=== PATIENT | male | born 1945 | race Caucasian/White ===

== ENCOUNTER 2020-05-12 17:02 | Emergency (ER) | payer MEDICARE, OTHER, SELFPAY ==
[2020-05-12 17:14] VITALS: BP 121/64; PULSE 94; RESP 20; TEMP 36.6; O2SAT 98
--- NOTE | 2020-05-12 17:36 | ED.SKABFB ---
HPI - Skin/Abscess/Foreign Bdy General Chief complaint: Wound/Laceration Stated complaint: wound Time Seen by Provider: 05/12/20 17:03 Source: patient Mode of arrival: ambulatory Limitations: no limitations History of Present Illness HPI narrative: 74-year-old male presents to [facility] care with complaints of skin tear to his left upper arm after his arm was hit with a softball while watching his granddaughter softball game prior to arrival. Patient is unsure of his last tetanus shot. Patient does not take blood thinners daily. Patient denies headache, dizziness, blurred vision, nausea or vomiting. MD complaint: other (skin tear) Tetanus up to date: no [place] [facility] [place]acerbating factors: none Context: none Treatments prior to arrival: bandages Related Data Home Medications Medication Instructions Recorded Confirmed metformin 500 mg PO DAILY 05/12/20 05/12/20 nitroglycerin 0.4 mg SUBLINGUAL Q5M PRN 05/12/20 05/12/20 simvastatin 10 mg PO DAILY 05/12/20 05/12/20 Allergies Allergy/AdvReac Type Severity Reaction Status Date / Time No Known Allergies Allergy Unknown Verified 05/12/20 17:18 Review of Systems Constitutional: Constitutional: Denies chills, Denies fatigue, Denies fever(s) and Denies weakness ENT: Denies vertigo and Denies dizziness Cardiovascular: Cardiovascular: Denies chest pain, Denies rapid heart rate, Denies radiating jaw, neck or arm pain and Denies slow heart rate Respiratory: Respiratory: Denies chest congestion, Denies cough, Denies dyspnea and Denies wheezing Gastrointestinal: Gastrointestinal: Denies abdominal pain, Denies diarrhea, Denies nausea and Denies vomiting Integumentary/Breasts: Comments: skin tear to left upper arm Neurologic: Denies vertigo, Denies headache(s), Denies focal weakness, Denies numbness and Denies weakness PMFSH Past Medical History Medical History (Updated 05/12/20 @ 17:44 by Ivory Aburto APRN) Diabetes mellitus HTN (hypertension) Myocardial infarct Surgical History Surgical History (Updated 05/12/20 @ 17:39 by Ivory Aburto APRN) H/O heart artery stent History of removal of cyst Social History Social History (Updated 05/12/20 @ 17:40 by Ivory Aburto APRN) Smoking packs per day: 0.5 Smoking cigarettes per day: 10.0 Smoking status: Current every day smoker Exam Const: General: healthy appearing, no acute distress and alert Orientation/consciousness: patient oriented x3 Neck: Neck: normal visual inspection Resp: Effort & Inspection: normal respiratory effort, not labored and not tachypneic Auscultation: clear to auscultation bilaterally Cardio: Rate: regular rate, not bradycardic and not tachycardic Rhythm: regular rhythm Heart sounds: no murmurs Skin: General skin exam: normal color Rashes: no rashes Other: 8 cm skin tear noted to left upper arm. There is no active bleeding, purulent drainage, streaking erythema or signs of infection noted. Neuro: General: patient oriented x3 and moves all extremities Extrem: General: normal to inspection (Skin tear noted to left upper arm; full range of motion noted. ), no clubbing, cyanosis or edema and no pedal edema Other: Full range of motion noted to left arm. No pain upon palpation left upper arm. There is faint amount of bruising noted around skin tear. Course Vital Signs Vital signs: Vital Signs Temperature 36.6 C 05/12/20 17:14 Pulse Rate 94 05/12/20 17:14 Respiratory Rate 20 05/12/20 17:14 Blood Pressure 121/64 05/12/20 17:14 Pulse Oximetry 98 05/12/20 17:14 Temperature 36.6 C 05/12/20 17:14 Pulse Rate 94 05/12/20 17:14 Respiratory Rate 20 05/12/20 17:14 Blood Pressure 121/64 05/12/20 17:14 Pulse Oximetry 98 05/12/20 17:14 Procedures Other Procedure Procedure 1: Other Procedure: Skin tear was cleansed using normal saline. Wound edges were well approximated using 6 Steri-Strips. Patient tolerated well. There is no act
[2020-05-12] MEDS: TETANUS/DIPHTHERIA TOXOIDS ADSORB 0.5 ML VIAL (*BKC) IM (18:00)
== END 2020-05-12 18:18 | disposition home or self-care (01) ==
PROVIDERS: Emergency Provider Nurse Practitioner Family; PCP Physician Assistant
DX: S41.112A Laceration without foreign body of left upper arm, initial encounter (principal); W21.03XA Struck by baseball, initial encounter; Z23 Encounter for immunization; F17.210 Nicotine dependence, cigarettes, uncomplicated; E11.9 Type 2 diabetes mellitus without complications; I10 Essential (primary) hypertension; I25.2 Old myocardial infarction; Z95.5 Presence of coronary angioplasty implant and graft; Z79.84 Long term (current) use of oral hypoglycemic drugs
CPT/HCPCS: 90471; 90714; 99212; G0463

== ENCOUNTER 2021-05-12 18:17 | Emergency (ER) | payer MEDICARE, OTHER, SELFPAY ==
[2021-05-12] VITALS (9 sets, daily range): BP systolic 113–139; BP diastolic 60–79; PULSE 80–99; RESP 15–22; TEMP 36.6; O2SAT 96–100
--- NOTE | ~2021-05-12 | XR_ITS ---
XR abdomen/kub 1V 05/12/2021 20:39 INDICATION: Abdominal pain. History of kidney stones. TECHNIQUE: KUB COMPARISON: None FINDINGS: Bowel gas pattern is normal. There is no evidence of free air, mass, organomegaly, ascites or obstruction. No abnormal calculi are seen. The bones appear intact. There are vascular calcific ations in the pelvis. Mild lumbar spondylosis. IMPRESSION: 1: No acute abdominal abnormality identified. Reviewed, dictated and finalized at location A.
--- NOTE | ~2021-05-12 | CT_ITS ---
EXAMINATION: CT abdomen pelvis wo con DATE: 05/12/2021 18:51 INDICATION: Bilateral flank pain. Kidney stones. TECHNIQUE: Computed tomography (CT) of the abdomen and pelvis was performed without intravenous contr ast. The dose-length product was 261.02 mGy-cm. Automated exposure control and iterative reconstructi on technique were employed. COMPARISON: CT dated 09/03/2019 FINDINGS: Heart size normal. No significant pleural or pericardial effusion. There are interstitial c hanges in the lower lobes which appear chronic. Elevated right diaphragm. Gallstones. There is a 5 mm right UVJ stone with moderate hydroureteronephrosis. There are nonobstructing left renal stones. The re is right perinephric edema. Nonobstructive bowel gas pattern. No free air or free fluid. The liver, spleen, pancreas, adrenal gla nds are unremarkable. Mild lumbar spondylosis. IMPRESSION: 1. Right UVJ stone measuring 5 mm with moderate hydronephrosis. 2: Nonobstructing left nephrolithiasis. 3: Cholelithiasis. Reviewed, dictated and finalized at location A.
[2021-05-12 18:48] LABS: Basophils Absolute Auto 0.1 K/mm3 (0.0-0.1); Basophils Percent Auto 0.4 % (0.2-1.2); Eosinophils Absolute Auto 0.2 K/mm3 (0-0.3); Eosinophils Percent Auto 1.1 % (0-4.4); Hematocrit 48.8 % (42.0-52.0); Hemoglobin 15.8 g/dL (14.0-18.0); Immature Granulocyte Absolute 0.05 K/mm3 (0.00-0.031); Immature Granulocyte Percent A 0.4 % (0-0.5); Lymphocytes Absolute Auto 1.85 K/mm3 (0.9-3.2); Lymphocytes Percent Auto 13.3 % (18.3-44.2); Mean Corpuscular HGB Conc 32.4 g/dl (32-36); Mean Corpuscular Volume 92.6 fl (80-100); Monocytes Absolute Auto 0.8 K/mm3 (0.1-0.6); Monocytes Percent Auto 5.7 % (2.6-8.5); Neutrophils Percent Auto 79.1 % (45.5-73.1); Platelet Count Result 225 k/mm3 (150-375); Red Blood Count 5.27 M/mm3 (4.6-6.20); Red Cell Distribution Width 13.7 % (11.5-14.5)
[2021-05-12 18:59] LABS: Anion Gap 8 mmol/L (8-16); Blood Urea Nitrogen 22 mg/dL (9-20); Calcium 9.8 mg/dL (8.4-10.2); Carbon Dioxide 24 mmol/L (22-30); Chloride 103 mmol/L (98-107); Estimated CRCL calculation 41 ml/min; Estimated Glomerular Filt Rate 45; Glucose 194 mg/dL (65-110); Potassium 4.3 mmol/L (3.4-5.0); Sodium 135 mmol/L (137-145)
[2021-05-12 19:59] LABS: Add Urine Microscopic? YES; Appearance Urine Cloudy (Clear); Bilirubin Urine Negative (Negative); Blood Urine 3+ (Negative); Color Urine Amber (Yellow); Glucose Urine UA 1+ mg/dL (Negative); Ketones Urine Trace mg/dL (Negative); Leukocyte Esterase Ur Negative LEU/UL (Negative); Mucus Urine Heavy /lpf; Nitrate Urine Negative (Negative); Protein Urine 2+ mg/dL (Negative); RBC Urine >75 /hpf (0-2); Squamous Epithelial Cell Urine Occasional /hpf (Few); WBC Urine 0-3 /hpf
--- NOTE | 2021-05-12 20:21 | ED.ABDPAIN ---
HPI - Abdominal Pain General Chief Complaint: Urogenital-Male Stated Complaint: Low Back Pain/Nausea Time Seen by Provider: 05/12/21 19:22 Source: patient Mode of arrival: ambulatory Limitations: no limitations History of Present Illness HPI narrative: Patient with history of kidney stones presents with chief complaint of pain in the right groin that wraps around to the back that presented this evening. Patient states he has a history of kidney stones. He states he has passed one on his own and the other had to be removed so he was unsure which was currently experiencing. Patient denies fever, chills, vomiting, diarrhea. Patient states he is seeing Dr. Alexis in the past for urinary stones. Related Data Home Medications Medication Instructions Recorded Confirmed metformin 500 mg PO DAILY 05/12/20 05/12/20 nitroglycerin 0.4 mg SUBLINGUAL Q5M PRN 05/12/20 05/12/20 simvastatin 10 mg PO DAILY 05/12/20 05/12/20 niacin mg PO 05/12/21 05/12/21 Allergies Allergy/AdvReac Type Severity Reaction Status Date / Time No Known Allergies Allergy Unknown Verified 05/12/21 19:03 Review of Systems Review of Systems: CONSTITUTIONAL: Denies fever, chills, or sweats. EYES: Denies visual changes, redness, or discharge. ENT: Denies rhinorrhea, congestion, sore throat, or otalgia. CARDIOVASCULAR: Denies chest pain, palpitations, or edema. RESPIRATORY: Denies cough or dyspnea. GASTROINTESTINAL: Denies abdominal pain, nausea, vomiting, or diarrhea. GENITOURINARY: Reports right groin pain denies dysuria or hematuria. SKIN: Denies rash or itching. MUSCULOSKELETAL: Denies back pain, joint pain, or myalgia. NEUROLOGIC: Denies headache, numbness, dizziness, or weakness. PSYCHIATRIC: Denies anxiety or depression. [facility] Past Medical History Medical History (Updated 05/12/21 @ 20:25 by Latonia Hernandez PA-C) Diabetes mellitus HTN (hypertension) Myocardial infarct Surgical History Surgical History (Updated 05/12/20 @ 17:39 by Ivory Aburto APRN) H/O heart artery stent History of removal of cyst Social History Social History (Updated 05/12/20 @ 17:40 by Ivory M. Criselda, MEDICAL TRANSCRIBER) Smoking packs per day: 0.5 Smoking cigarettes per day: 10.0 Smoking status: Current every day smoker Exam Narrative: GENERAL: Well-appearing, well-nourished, and in no acute distress. HEAD: Normocephalic, atraumatic. EYES: PERRLA and EOMI. CHEST: Clear to auscultation. No respiratory distress. No wheezes rales or rhonchi ABDOMEN: Soft, nontender, nondistended, normal active bowel sounds. EXTREMITIES: Normal range of motion. No edema. SKIN: Warm, dry, no rash. NEURO: No focal deficits. Alert and oriented x3. PSYCH: Normal mood and affect. Course Vital Signs Vital signs: Vital Signs Temperature 97.9 F 05/12/21 18:31 Pulse Rate 94 05/12/21 18:31 Respiratory Rate 16 05/12/21 18:31 Blood Pressure 139/79 05/12/21 18:31 Pulse Oximetry 100 05/12/21 18:31 Temperature 97.9 F 05/12/21 18:31 Pulse Rate 99 05/12/21 18:56 Respiratory Rate 17 05/12/21 18:56 Blood Pressure 128/60 05/12/21 18:56 Pulse Oximetry 99 05/12/21 18:56 MDM - Abdominal Pain MDM Narrative Medical decision making narrative: Patient states that the pain has gone away. Patient states he believes that he passed the stone as he no longer has pain in his groin and back. Patient has been able to urinate without difficulty or obstruction. Differential Diagnosis Differential diagnosis: Likely abdominal pain, acute appendicitis, calculus of kidney, constipation, diverticulitis, endometriosis, gastroenteritis, pancreatitis and small bowel obstruction Lab Data Result diagrams: 05/12/21 18:40 05/12/21 18:40 Labs: Lab Results 05/12/21 05/12/21 05/12/21 Range/Units 18:40 18:40 19:46 WBC 14.0 H (4.5-10.0) K/mm3 RBC 5.27 (4.6-6.20) M/mm3 Hgb 15.8 (14.0-18.0) g/dL Hct 48.8 (42.0-52.0) % MCV 92.6 (80
== END 2021-05-12 21:41 | disposition home or self-care (01) ==
PROVIDERS: Emergency Medicine; Emergency Provider Emergency Medicine; PCP Physician Assistant
DX: N13.2 Hydronephrosis with renal and ureteral calculous obstruction (principal); E11.9 Type 2 diabetes mellitus without complications; I10 Essential (primary) hypertension; I25.2 Old myocardial infarction; Z95.5 Presence of coronary angioplasty implant and graft; F17.210 Nicotine dependence, cigarettes, uncomplicated; K80.20 Calculus of gallbladder without cholecystitis without obstruction; Z79.84 Long term (current) use of oral hypoglycemic drugs
CPT/HCPCS: 36415; 74018; 74176; 80048; 81001; 85025; 99284

== ENCOUNTER 2021-05-14 08:58 | Observation (INO) | payer MEDICARE, OTHER, SELFPAY ==
[2021-05-14] VITALS (11 sets, daily range): BP systolic 103–139; BP diastolic 43–83; PULSE 75–110; RESP 14–24; TEMP 35.9–36.9; O2SAT 95–100
--- NOTE | ~2021-05-14 | CT_ITS ---
EXAMINATION: CT abdomen pelvis wo con EXAM DATE: 05/14/2021 11:05 INDICATION: Kidney stone, right-sided. TECHNIQUE: Spiral CT of the abdomen and pelvis was performed without contrast. Axial, coronal and sag ittal images were reviewed. The dose-length product (DLP) for this examination was 276.45 mGy-cm. T he exposure was tailored according to patient size (auto mA exposure control), and iterative reconstr uction (ASIR) was used as additional dose reduction technique. Comparison is made to prior examinatio n from 05/12/2021. FINDINGS: There is a 6 mm stone projecting into the bladder base from the UVJ. There is mild to moder ate right-sided hydroureteronephrosis. There are 2 punctate left calyceal stones which are nonobstruc ting. The prostate is unremarkable. The bladder is unremarkable. The liver, spleen, adrenal glands and pancreas are unremarkable. Single small gallstone identified, gallbladder otherwise unremarkabl e. There is no retroperitoneal or pelvic lymphadenopathy. There is moderate scattered arterioscler otic disease. The appendix is not positively visualized. There is no pericecal inflammatory change to suggest appe ndicitis. There is mild sigmoid colonic diverticulosis. There is no adjacent inflammatory change to suggest diverticulitis. The stomach and small bowel are unremarkable. There is expected amount of co lonic stool. No free intraperitoneal gas. The heart is normal in size. There are no pericardial or pleural effusions. The lung bases are unremarkable. There are no osteoblastic or osteolytic lesi ons identified. Mild bilateral gynecomastia. IMPRESSION: 1. Right UVJ 6 mm stone, mild to moderate obstructive nephropathy. 2. Punctate left nephrolithiasis. 3. Cholelithiasis. 4. Sigmoid diverticulosis. Reviewed, dictated and finalized at location A.
--- NOTE | ~2021-05-14 | XR_ITS ---
EXAMINATION: XR retrograde pyelo w/stent RT DATE: 05/14/2021 13:54 INDICATION: Right internal ureteral stent placement TECHNIQUE: Fluoroscopic images from a right internal ureteral stent placement are submitted for chris duffy 49 seconds of fluoroscopy time. 14 fluoroscopic images. FINDINGS: There is a right double-J internal ureteral stent projecting in expected position, with proximal [place] loop at the level of the renal pelvis and distal loop in the pelvis within the bladder lumen. IMPRESSION: 1. Right internal ureteral stent placement. Please refer to real-time procedural findings for lissette saravia. Reviewed, dictated and finalized at location A. IMPRESSION: 1. Right internal ureteral stent placement. Please refer to real-time procedu ral findings for details.
[2021-05-14 09:25] LABS: Basophils Absolute Auto 0.1 K/mm3 (0.0-0.1); Basophils Percent Auto 0.3 % (0.2-1.2); Eosinophils Percent Auto 0.1 % (0-4.4); Hematocrit 46.2 % (42.0-52.0); Immature Granulocyte Percent A 0.6 % (0-0.5); Lymphocytes Absolute Auto 1.43 K/mm3 (0.9-3.2); Lymphocytes Percent Auto 7.9 % (18.3-44.2); Mean Corpuscular HGB Conc 32.5 g/dl (32-36); Mean Corpuscular Hemoglobin 30.2 pg (26-34); Mean Platelet Volume 9.9 fl (7.4-10.4); Monocytes Absolute Auto 1.1 K/mm3 (0.1-0.6); Monocytes Percent Auto 6.2 % (2.6-8.5); Neutrophils Absolute Auto 15.3 K/mm3 (1.3-6.7); Neutrophils Percent Auto 84.9 % (45.5-73.1); Platelet Count Result 201 k/mm3 (150-375); Red Blood Count 4.97 M/mm3 (4.6-6.20); Red Cell Distribution Width 13.8 % (11.5-14.5)
[2021-05-14 09:45] LABS: Anion Gap 15 mmol/L (8-16); Blood Urea Nitrogen 21 mg/dL (9-20); Calcium 9.2 mg/dL (8.4-10.2); Carbon Dioxide 20 mmol/L (22-30); Chloride 101 mmol/L (98-107); Estimated CRCL calculation 28 ml/min; Estimated Glomerular Filt Rate 29; Glucose 154 mg/dL (65-110); Potassium 4.6 mmol/L (3.4-5.0); Sodium 136 mmol/L (137-145)
[2021-05-14 10:14] LABS: Add Urine Microscopic? YES; Appearance Urine Clear (Clear); Bilirubin Urine Negative (Negative); Blood Urine 2+ (Negative); Color Urine Yellow (Yellow); Glucose Urine UA Negative (Negative); Ketones Urine 1+ mg/dL (Negative); Leukocyte Esterase Ur Negative LEU/UL (Negative); Mucus Urine Rare /lpf; Nitrate Urine Negative (Negative); Protein Urine 1+ mg/dL (Negative); Squamous Epithelial Cell Urine Rare /hpf (Few)
[2021-05-14 10:18] LABS: Specific Grav Ur 1.031 (1.001-1.035)
[2021-05-14] MEDS: HYDROmorphone HCL INJ (*CRX) 1 MG/ML SYR 0.5 MG IV PUSH (10:55)
[2021-05-14] MEDS: ONDANSETRON INJ 4 MG/2 ML VIAL IV PUSH (10:55)
--- NOTE | 2021-05-14 12:27 | WPDANESEPP ---
Anes - Eval Pre Procedure Procedure: cysto stent placement Date/Time: 05/14/21 12:27 Pre Op Diagnosis: kidney stone pain Patient Data Age: 75 Gender: M Height: 1.83 m Weight: 83.9 kg Last Vital Signs Temp 36.9 C 05/14/21 09:10 Pulse 87 05/14/21 12:09 Resp 20 05/14/21 12:09 BP 139/68 05/14/21 12:09 Pulse Ox 98 05/14/21 12:09 Allergies Allergy/AdvReac Type Severity Reaction Status Date / Time No Known Allergies Allergy Unknown Verified 05/14/21 09:13 Home Medications Medication Instructions Recorded Confirmed Type metformin 500 mg PO DAILY 05/12/20 05/12/20 History nitroglycerin 0.4 mg SUBLINGUAL Q5M PRN 05/12/20 05/12/20 History simvastatin 10 mg PO DAILY 05/12/20 05/12/20 History niacin mg PO 05/12/21 05/12/21 History Laboratory Tests 05/14/21 05/14/21 05/14/21 09:16 09:16 09:55 WBC 18.0 K/mm3 H K/mm3 (4.5-10.0) RBC 4.97 M/mm3 M/mm3 (4.6-6.20) Hgb 15.0 g/dL g/dL (14.0-18.0) Hct 46.2 % % (42.0-52.0) MCV 93.0 fl fl (80-100) MCH 30.2 pg pg (26-34) MCHC 32.5 g/dl g/dl (32-36) RDW 13.8 % % (11.5-14.5) Plt Count 201 k/mm3 k/mm3 (150-375) MPV 9.9 fl fl (7.4-10.4) Immature Gran % (Auto) 0.6 % H % (0-0.5) Neut % (Auto) 84.9 % H % (45.5-73.1) Lymph % (Auto) 7.9 % L % (18.3-44.2) [place] % (Auto) 6.2 % % (2.6-8.5) Eos % (Auto) 0.1 % % (0-4.4) Baso % (Auto) 0.3 % % (0.2-1.2) Lymph # (Auto) 1.43 K/mm3 K/mm3 (0.9-3.2) [place] # (Auto) 1.1 K/mm3 H K/mm3 (0.1-0.6) Eos # (Auto) 0.0 K/mm3 K/mm3 (0-0.3) Baso # (Auto) 0.1 K/mm3 K/mm3 (0.0-0.1) Abs Immat Gran (auto) 0.10 K/mm3 H K/mm3 (0.00-0.031) Absolute Neuts (auto) 15.3 K/mm3 H K/mm3 (1.3-6.7) Absolute Nucleated RBC 0.0 K/mm3 K/mm3 (0.0-0.012) Nucleated RBC % 0.0 % % (0.0-0.2) Sodium 136 mmol/L L mmol/L (137-145) Potassium 4.6 mmol/L mmol/L (3.4-5.0) Chloride 101 mmol/L mmol/L (98-107) Carbon Dioxide 20 mmol/L L mmol/L (22-30) Anion Gap 15 mmol/L mmol/L (8-16) BUN 21 mg/dL H mg/dL (9-20) Creatinine 2.20 mg/dL H mg/dL (0.7-1.3) Estim Creat Clear Calc 28 ml/min ml/min Estimated GFR 29 L (59 - ) Glucose 154 mg/dL H mg/dL (65-110) Calcium 9.2 mg/dL mg/dL (8.4-10.2) Urine Color Yellow (Yellow) Urine Appearance Clear (Clear) Urine pH 5.0 (5.0-9.0) Ur Specific [place] 1.031 (1.001-1.035) Urine Protein 1+ mg/dL H mg/dL (Negative) Urine Glucose (UA) Negative mg/dL mg/dL (Negative) Urine Ketones 1+ mg/dL H mg/dL (Negative) Ur Blood (Man) 2+ H (Negative) Urine Nitrate Negative (Negative) Urine Bilirubin Negative (Negative) Urine Urobilinogen 2.0 mg/dL H mg/dL (<2.0) Leukocyte Esterase Rfl Negative [place]/UL KIMBERLEY/UL (Negative) Urine RBC 6-10 /hpf H /hpf (0-2) Urine WBC 7-9 /hpf H /hpf Ur Squamous Epith Cells Rare /hpf /hpf (Few) Urine Mucus Rare /lpf /lpf Patient hx anesthesia problems: none Family hx anesthesia problems: none PMFSH Past Medical History Medical History Diabetes mellitus HTN (hypertension) Myocardial infarct Surgical History Surgical History H/O heart artery stent History of removal of cyst Social History Social History Smoking packs per day: 0.5 Smoking cigarettes per day: 10.0 Smoking status: Current every day smoker Exam Day of Procedure 05/14/21 12:27
--- NOTE | 2021-05-14 12:46 | PM.IMHP ---
H&P: HPI History of Present Illness Date/Time: 05/14/21 12:46 This 75 year old male patient with a significant PMH of ACS including NV with subsequent stenting x2, HTN, DM, HLD and previously diagnosed Nephrolithiasis, presents to the ER for the second time in two days with continued and worsening pain secondary to obstructive Nephropathy. He was here on the and a 5 mm stone was found on the right side at the UVJ with moderate Hydronephrosis, but it was not obstructing at that time and the pt has resolution of pain, so he was discharged to home to follow up as an outpatient. He presents again today endorsing pain that was worse on the right flank this morning when he woke up and he had accompanying N/V. No hematuria, dysuria, or any visible stones passed in his urine. He was afebrile on presentation to ER and his workup there has been significant for finding a 6 mm stone in the right UVJ that is now obstructing, and is causing a worsening ELISEO with elevated Creatinine and BUN from 1.50/22 on 05/12 to 2.20/[address] Moe was consulted in ER and the decision to take him to OR today for Lithotripsy and stent placement was made. Patient currently denies any Chest Pain, Dyspnea, palpitations, and reports that his Nausea has improved as well as his pain with the administration of pain medications and anti-emetics. Chief Complaint: Right Flank Pain with radiation to Right abdomen with N/V Review of Systems Review of Systems: All systems reviewed & are unremarkable except as noted in HPI and below PMFSH Past Medical History Medical History Diabetes mellitus HTN (hypertension) Myocardial infarct Surgical History Surgical History H/O heart artery stent History of removal of cyst Social History Social History Smoking packs per day: 0.5 Smoking cigarettes per day: 10.0 Smoking status: Current every day smoker Meds Home Medications and Allergies Home Medications Medication Instructions Recorded Confirmed Type metformin 500 mg PO DAILY 05/12/20 05/12/20 History nitroglycerin 0.4 mg SUBLINGUAL Q5M PRN 05/12/20 05/12/20 History simvastatin 10 mg PO DAILY 05/12/20 05/12/20 History niacin mg PO 05/12/21 05/12/21 History Allergies Allergy/AdvReac Type Severity Reaction Status Date / Time No Known Allergies Allergy Unknown Verified 05/14/21 09:13 Vital Signs Vital Signs - 24 hr 05/14/21 09:10 05/14/21 12:09 Temperature 36.9 C Pulse Rate 89 87 Respiratory Rate 24 H 20 Blood Pressure 136/83 139/68 Pulse Oximetry 100 98 Exam Const: General: comfortable and no acute distress Neck: Neck: supple and no JVD Resp: Effort & Inspection: normal respiratory effort Auscultation: clear to auscultation bilaterally, no crackles, no rales, no rhonchi, no wheezes and lung sounds not diminished Cardio: Rate: regular rate and not bradycardic Rhythm: regular rhythm Heart sounds: no gallops, no murmurs and no rubs GI: GI Palp: Yes Soft to palpation, Yes Tenderness to palpation present (GI) (Right flank radiating to RLQ.), No Guarding due to palpation present (GI) and No Hernia present Auscultation: normal bowel sounds : Male General Exam: Yes tenderness (In suprapubic region.) Skin: General skin exam: normal color, no rashes or lesions noted and no erythema Lesions: no lesions noted Neuro: Cognition (Neuro): normal cognition Speech: normal speech Sensory Exam: normal sensation Extrem: General: normal to inspection Right upper extremity: normal to inspection Left upper extremity: normal to inspection Right lower extremity: normal to inspection Left lower extremity: normal to inspection Psych: Mental Status: mental status grossly normal Affect: normal affect, No Sad affect present, No Anxious affect present and No Hostile affect present A
--- NOTE | 2021-05-14 12:59 | WPDURCON ---
Assessment and Plan Additional Plan right ureter stone /hydro with ELISEO plan for cystoscopy right retrograde pyelogram, right ureter stent placement - risks, benefits, alternatives, nature of procedure and complications reviewed risks including bt not limited to bleeding, infection, trauma to surrounding structures, inability to place stent, damage to ureter, the side effects and temporary nature of the stent ( need for additional procedures to treat the stone and remove the stent) in addition to anesthesia and positioning complications of ME, stroke, blood clots, , disability reviewed. all ? answered pt verbalized understanding. Urology Consult Note HPI Date Seen: 05/14/21 Primary Care Provider: Navneet Desai, , PA Consult Narrative Narrative: Omkar Mir III is a 75 year old male with a prior history of kidney stones(sees Dr Alexis), seen in ER 05/12/21 with a 5 mm right UVJ stone, he was sent home on expectant management with followup with Dr Alexis and returned to the ER with worsening pain localized to the RLQ /flank. Pain improved with Dilaudid. Cr up to 2.2, wbc 18. denies hematuria or dysuria. no subjective fever. he has had a prior ureter stent. He last drank water this am. He had some nausea/vomiting in the ER. Last meal 6 pm. Review of Systems Review of Systems: All systems reviewed & are unremarkable except as noted in HPI and below Constitutional: Constitutional: Reports as per HPI and Denies chills Eyes: Eyes: Reports no additional eye complaints ENT: Reports Normal hearing present Cardiovascular: Cardiovascular: Denies chest pain Respiratory: Respiratory: Reports no additional respiratory complaints, Denies cough and Denies dyspnea on exertion Gastrointestinal: Gastrointestinal: Reports as per HPI Genitourinary: Genitourinary: Reports as per HPI Musculoskeletal: Musculoskeletal: Reports as per HPI Integumentary/Breasts: Skin/Breast: Reports as per HPI Neurologic: Reports as per HPI Psychiatric: Psychiatric: Reports as per HPI [facility] Past Medical History Medical History Diabetes mellitus HTN (hypertension) Myocardial infarct Surgical History Surgical History H/O heart artery stent History of removal of cyst Social History Social History Smoking packs per day: 0.5 Smoking cigarettes per day: 10.0 Smoking status: Current every day smoker Meds Home Medications and Allergies Home Medications Medication Instructions Recorded Confirmed Type metformin 500 mg PO DAILY 05/12/20 05/12/20 History nitroglycerin 0.4 mg SUBLINGUAL Q5M PRN 05/12/20 05/12/20 History simvastatin 10 mg PO DAILY 05/12/20 05/12/20 History niacin mg PO 05/12/21 05/12/21 History Allergies Allergy/AdvReac Type Severity Reaction Status Date / Time No Known Allergies Allergy Unknown Verified 05/14/21 09:13 Vital Signs Vital Signs - 24 hr 05/14/21 09:10 05/14/21 12:09 Temperature 36.9 C Pulse Rate 89 87 Respiratory Rate 24 H 20 Blood Pressure 136/83 139/68 Pulse Oximetry 100 98 Exam Const: General: no acute distress HENMT: General nose exam: Normal nares present Mouth: Yes dry mucous membranes Eyes: General: appearance normal, both eyes and all related structures Resp: Effort & Inspection: normal respiratory effort Auscultation: no wheezes Cardio: Rhythm: regular rhythm GI: Inspection: non-distended GI Palp: Yes Soft to palpation, No Guarding due to palpation present (GI) and Yes Other GI palpation findings present (+ mild right CVA TTP) : Male General Exam: Yes normal external exam Skin: General skin exam: normal color and no rashes or lesions noted Neuro: Speech: normal speech Motor exam (neuro): Normal motor muscle tone present throughout Extrem: General: normal to inspect
--- NOTE | 2021-05-14 13:13 | WPDHPUPDATE1 ---
History and Physical Update Update Date/Time: 05/14/21 13:13 History and Physical has been reviewed, including an updated exam of the patient. There are NO changes in the patient's condition. Risks, benefits, and alternatives have been discussed and questions answered. Patient agrees to proceed with procedure.
--- NOTE | 2021-05-14 13:24 | P.PNAN_ITS ---
Anes - Eval Final PreProcedure Day of Procedure 05/14/21 13:24 Patient weight: normal Heart: regular rate and rhythm Lungs: clear to auscultation Airway: Mallampati scale class II Neurological: alert and oriented Last oral intake: >/= 8 hours ASA classification: III Emergent: no Anesthetic plan: proceed Anesthesia type and monitoring: general ETT and standard monitoring Informed Consent: The patient's anesthetic plan and its attendant risks and b enefits were discussed with the patient/family/POA. Questions were solicited and answers provided to the satisfaction of the patient/family/POA.
[2021-05-14] MEDS: LIDOCAINE HCL 2% GEL UROJET 10 ML PKG MUCOUS MEM (13:31)
--- NOTE | 2021-05-14 13:51 | W.PM.PROC2 ---
Procedure Note - Detailed Date of Procedure 05/14/21 Pre-op Diagnosis kidney stone pain right uretr stone Post-op Diagnosis same Procedure Performed cystoscopy, right retrograde pyelogram, right ureter stent placement Surgeon Sean Waldron MD Anesthesia general Indications right urter stone/hydro/ELISEO Findings stone at UVJ with miderate hydro Description of Procedure Patient was brought back to the OR, he was given GETA, he had received IV antibiotics prior with IV rocephin. He was prepped and draped in standard fashion in the dorsal lithotomy position with betadine scrub the the genitalia. After appropriate timeout and pt identifiers were used a 22 Fr cystoscope was inserted into the urethra. The urethra had mild bulbous narrowing but was passable. The prostate had trilobar hyperplasia with a small middle lobe. he had single ureteral orifices, edema and inflammation was seen at the right U/O consistent with impacted stone. The bladder had moderate trabeculation, was free of tumor mass or lesion. A [employer] wire was placed up the right ureteral orifice past the stone under fluoroscopy, a 5 Fr open ended catheter was placed over this and a gentle retrograde was performed to outline the collecting system, he had mild to moderate hydronephrosis and hydroureter. a 6 Fr variable length stent was then deployed, good curl was seen fluoroscopically in the kidney and both fluoroscopically and endoscopically in the bladder, bladder was drained all instruments and wires removed, patient was awoken and transferred to recovery in stable condition, no family to speak with. he will be admitted to the floor given ELISEO and elevated wbc. Implants right 6 Fr variable length stent Estimated Blood Loss 0 Drains No Packing No Pathology none sent Complications No immediate complications Condition stable Disposition PACU
[2021-05-14] MEDS: LACTATED RINGERS 1,000 ML 30 ML IV CONT (13:59)
[2021-05-14 14:39] LABS: Glucose Point of Care 136 mg/dl (65-105)
--- NOTE | 2021-05-14 15:00 | ED.GENADULT ---
HPI - General Adult General Chief complaint: Urogenital-Male Stated complaint: kidney stone pain Time Seen by Provider: 05/14/21 10:16 Source: patient Mode of arrival: ambulatory Limitations: no limitations History of Present Illness HPI narrative: Patient with history of kidney stones return to the emergency department with right groin and right flank pain that was increased in intensity beginning at 1 AM this morning and is accompanied by nausea and vomiting. Patient was in emergency department on and diagnosed with a right UVJ stone with felt that he passed that if the pain subsided without intervention. Patient states he felt fine yesterday until this morning when he began having increased pain with pain to his flank nausea and vomiting. Patient denies being febrile or weak. Patient states he has had kidney stones in the past, 1 which required lithotripsy by Dr. Alexis. Related Data Home Medications Medication Instructions Recorded Confirmed metformin 500 mg PO DAILY 05/12/20 05/12/20 nitroglycerin 0.4 mg SUBLINGUAL Q5M PRN 05/12/20 05/12/20 simvastatin 10 mg PO DAILY 05/12/20 05/12/20 niacin mg PO 05/12/21 05/12/21 Allergies Allergy/AdvReac Type Severity Reaction Status Date / Time No Known Allergies Allergy Unknown Verified 05/14/21 09:13 Review of Systems Review of Systems: CONSTITUTIONAL: Denies fever, chills, or sweats. EYES: Denies visual changes, redness, or discharge. ENT: Denies rhinorrhea, congestion, sore throat, or otalgia. CARDIOVASCULAR: Denies chest pain, palpitations, or edema. RESPIRATORY: Denies cough or dyspnea. GASTROINTESTINAL: Reports nausea and vomiting denies diarrhea. GENITOURINARY: Reports right groin and right flank pain denies dysuria or hematuria. SKIN: Denies rash or itching. MUSCULOSKELETAL: Denies back pain, joint pain, or myalgia. NEUROLOGIC: Denies headache, numbness, dizziness, or weakness. PSYCHIATRIC: Denies anxiety or depression. [facility] Past Medical History Medical History Diabetes mellitus HTN (hypertension) Myocardial infarct Surgical History Surgical History H/O heart artery stent History of removal of cyst Social History Social History Smoking packs per day: 0.5 Smoking cigarettes per day: 10.0 Smoking status: Current every day smoker Exam Narrative: GENERAL: Well-appearing, well-nourished, and in no acute distress. HEAD: Normocephalic, atraumatic. EYES: PERRLA and EOMI. CHEST: Clear to auscultation. No respiratory distress. Right CVA tenderness HEART: Regular rate and rhythm. ABDOMEN: Soft, tender with palpation of the right lower abdomen/groin, nondistended, normal active bowel sounds. EXTREMITIES: Normal range of motion. No edema. SKIN: Warm, dry, no rash. NEURO: No focal deficits. Alert and oriented x3. PSYCH: Normal mood and affect. Course Vital Signs Vital signs: Vital Signs Temperature 98.5 F 05/14/21 09:10 Pulse Rate 89 05/14/21 09:10 Respiratory Rate 24 H 05/14/21 09:10 Blood Pressure 136/83 05/14/21 09:10 Pulse Oximetry 100 05/14/21 09:10 Temperature 97.6 F 05/14/21 14:40 Pulse Rate 91 05/14/21 14:40 Respiratory Rate 14 05/14/21 14:40 Blood Pressure 103/67 05/14/21 14:40 Pulse Oximetry 95 05/14/21 14:40 Medical Decision Making MDM Narrative Medical decision making narrative: In comparison of patient's creatinine and GFR he is having decreased renal function due to obstruction caused by nephrolithiasis. Consult with Dr. Waldron urology who states that the patient should be admitted and he will take patient to surgery to remove stone. Consult with [place] nurse practitioner who accepts patient for admission. Patient is comfortable at this time and is agreeable with admission with plans for surgery. Patient has not had any
[2021-05-14 16:33] LABS: Glucose Point of Care 124 mg/dl (65-105)
[2021-05-14 21:14] LABS: Glucose Point of Care 124 mg/dl (65-105)
[2021-05-15 06:00] VITALS: BP 115/64; PULSE 87; RESP 18; TEMP 36.7; O2SAT 97
[2021-05-15 06:08] LABS: Basophils Absolute Auto 0.1 K/mm3 (0.0-0.1); Basophils Percent Auto 0.5 % (0.2-1.2); Eosinophils Absolute Auto 0.1 K/mm3 (0-0.3); Eosinophils Percent Auto 1.3 % (0-4.4); Hematocrit 45.5 % (42.0-52.0); Hemoglobin 14.6 g/dL (14.0-18.0); Immature Granulocyte Absolute 0.04 K/mm3 (0.00-0.031); Immature Granulocyte Percent A 0.4 % (0-0.5); Lymphocytes Absolute Auto 2.14 K/mm3 (0.9-3.2); Lymphocytes Percent Auto 19.3 % (18.3-44.2); Mean Corpuscular HGB Conc 32.1 g/dl (32-36); Mean Corpuscular Hemoglobin 30.2 pg (26-34); Mean Platelet Volume 10.4 fl (7.4-10.4); Monocytes Percent Auto 8.7 % (2.6-8.5); Neutrophils Absolute Auto 7.8 K/mm3 (1.3-6.7); Neutrophils Percent Auto 69.8 % (45.5-73.1); Platelet Count Result 190 k/mm3 (150-375); Red Blood Count 4.84 M/mm3 (4.6-6.20); Red Cell Distribution Width 13.9 % (11.5-14.5); White Blood Count 11.1 K/mm3 (4.5-10.0)
[2021-05-15 06:28] LABS: Alanine Aminotransferase 20 U/L (4-50); Albumin Level 3.4 g/dL (3.5-5.1); Alkaline Phosphatase 71 U/L (38-126); Anion Gap 8 mmol/L (8-16); Aspartate Amino Transferase 30 U/L (17-59); Bilirubin,Total 0.8 mg/dL (0.2-1.3); Blood Urea Nitrogen 24 mg/dL (9-20); Calcium 9.2 mg/dL (8.4-10.2); Carbon Dioxide 28 mmol/L (22-30); Chloride 103 mmol/L (98-107); Estimated CRCL calculation 34 ml/min; Estimated Glomerular Filt Rate 37; Glucose 99 mg/dL (65-110); Potassium 4.8 mmol/L (3.4-5.0); Sodium 139 mmol/L (137-145)
--- NOTE | 2021-05-15 08:02 | WPDANESPN ---
Anes - Prog Note Post-Op Date/Time: 05/15/21 08:02 Cardiovascular status: normal Respiratory status: normal Airway patency: baseline Mental status: baseline Post-Op hydration status: normal Vital Signs: Last Vital Signs Temp 36.7 C 05/15/21 06:00 Pulse 87 05/15/21 06:00 Resp 18 05/15/21 06:00 BP 115/64 05/15/21 06:00 Pulse Ox 97 05/15/21 06:00 Pain Score (VAS): 3 I/O: Intake & Output 05/14/21 05/15/21 05/15/21 23:59 07:59 15:59 Intake Total 550 800 Output Total 1150 1100 Balance -600 -300 Laboratory Tests 05/15/21 04:23 05/15/21 04:23 05/14/21 05/14/21 05/14/21 09:16 09:16 09:55 WBC 18.0 H RBC 4.97 Hgb 15.0 Hct 46.2 MCV 93.0 MCH 30.2 MCHC 32.5 RDW 13.8 Plt Count 201 MPV 9.9 Immature Gran % (Auto) 0.6 H Neut % (Auto) 84.9 H Lymph % (Auto) 7.9 L [place] % (Auto) 6.2 Eos % (Auto) 0.1 Baso % (Auto) 0.3 Lymph # (Auto) 1.43 [place] # (Auto) 1.1 H Eos # (Auto) 0.0 Baso # (Auto) 0.1 Abs Immat Gran (auto) 0.10 H Absolute Neuts (auto) 15.3 H Absolute Nucleated RBC 0.0 Nucleated RBC % 0.0 Sodium 136 L Potassium 4.6 Chloride 101 Carbon Dioxide 20 L Anion Gap 15 BUN 21 H Creatinine 2.20 H Estim Creat Clear Calc 28 Estimated GFR 29 L Glucose 154 H POC Capillary Glucose Hemoglobin A1c Calcium 9.2 Total Bilirubin AST ALT Alkaline Phosphatase Total Protein Albumin Urine Color Yellow Urine Appearance Clear Urine pH 5.0 Ur Specific [place] 1.031 Urine Protein 1+ H Urine Glucose (UA) Negative Urine Ketones 1+ H Ur Blood (Man) 2+ H Urine Nitrate Negative Urine Bilirubin Negative Urine Urobilinogen 2.0 H Leukocyte Esterase Rfl Negative Urine RBC 6-10 H Urine WBC 7-9 H Ur Squamous Epith Cells Rare Urine Mucus Rare 05/14/21 05/14/21 05/14/21 14:06 16:23 20:00 WBC RBC Hgb Hct MCV MCH MCHC RDW Plt Count MPV Immature Gran % (Auto) Neut % (Auto) Lymph % (Auto) [place] % (Auto) Eos % (Auto) Baso % (Auto) Lymph # (Auto) [place] # (Auto) Eos # (Auto) Baso # (Auto) Abs Immat Gran (auto) Absolute Neuts (auto) Absolute Nucleated RBC Nucleated RBC % Sodium Potassium Chloride Carbon Dioxide Anion Gap BUN Creatinine Estim Creat Clear Calc Estimated GFR Glucose POC Capillary Glucose 136 H 124 H 124 H Hemoglobin A1c Calcium Total Bilirubin AST ALT Alkaline Phosphatase Total Protein Albumin Urine Color Urine Appearance Urine pH Ur Specific [place] Urine Protein Urine Glucose (UA) Urine Ketones Ur Blood (Man) Urine Nitrate Urine Bilirubin Urine Urobilinogen Leukocyte Esterase Rfl Urine RBC Urine WBC Ur Squamous Epith Cells Urine Mucus 05/15/21 05/15/21 05/15/21 04:23 04:23 04:23 WBC 11.1 H RBC 4.84 Hgb 14.6 Hct 45.5 MCV 94.0 MCH 30.2 MCHC 32.1 RDW 13.9 Plt Count 190 MPV 10.4 Immature Gran % (Auto) 0.4 Neut % (Auto) 69.8 Lymph % (Auto) 19.3 [place] % (Auto) 8.7 H Eos % (Auto) 1.3 Baso % (Auto) 0.5 Lymph # (Auto) 2.14 [place] # (Auto) 1.0 H Eos # (Auto) 0.1 Baso # (Auto) 0.1 Abs Immat Gran (auto) 0.04 H Absolute Neuts (auto) 7.8 H Absolute Nucleated RBC 0.0 Nucleated RBC % 0.0 Sodium 139 Potassium 4.8 Chloride 103 Carbon Dioxide 28 Anion Gap 8 BUN 24 H Creatinine 1.80 H Estim Creat Clear Calc 34 Estimated GFR 37 L Glucose 99 POC Capillary Glucose Hemoglobin A1c Pending Calcium 9.2 Total Bilirubin 0.8 AST 30 ALT 20 Alkaline Phosphatase 71 Total Protein 6.0 L Albumin 3.4 L Urine Color Urine Appearance Urine pH Ur Specific [place] Urine Protein
[2021-05-15 08:40] VITALS: O2SAT 97
[2021-05-15 09:11] LABS: Glucose Point of Care 123 mg/dl (65-105)
--- NOTE | 2021-05-15 09:18 | WPDUROPN2 ---
Progress Note: A&P Assessment and Plan (1) Ureterolithiasis: Code(s): N20.1 - Calculus of ureter Status: Acute Assessment and Plan: POD#1 s/p ureter stent ok to dc from perspective - he will need outpt followup and stone removal with Dr Alexis ( pt knows stone is still present) -pt understands stent is temporary and needs removal (2) Acute kidney injury superimposed on chronic kidney disease: Code(s): N17.9 - Acute kidney failure, unspecified; N18.9 - Chronic kidney disease, unspecified Status: Acute Assessment and Plan: Cr improved to 1.8 he will need followup Subjective Subjective Date/Time Seen: 05/15/21 09:18 Pain improved, urine clear. Denies f/c/cp/or sob. no blood in urine, feels better wants to go home Review of Systems Constitutional: Constitutional: Reports as per HPI Cardiovascular: Cardiovascular: Reports no additional cardiovascular complaints Respiratory: Respiratory: Denies cough Genitourinary: Genitourinary: Denies hematuria, Denies oliguria and Denies genital pain Musculoskeletal: Musculoskeletal: Denies back pain and Denies arthralgias Hematologic/Lymphatic: Hematologic/Lymphatic: Reports no additional hematologic/lymphatic complaints Exam Const: General: cooperative, healthy appearing, comfortable and no acute distress HENMT: Head: normal to inspection Ears: hearing grossly normal bilaterally Face and sinus: normal facial exam Resp: Effort & Inspection: normal respiratory effort and not labored Cardio: Rate: regular rate GI: Inspection: normal to inspection GI Palp: No abdominal tenderness and No Guarding due to palpation present (GI) Back/Spine/Pelvis: Back: no CVA tenderness Extrem: General: normal to inspection Objective Data Vital Signs Vital Signs: Vital Signs - 24 hr 05/14/21 12:09 05/14/21 13:01 05/14/21 13:20 Temperature Pulse Rate 87 85 85 Respiratory Rate 20 20 20 Blood Pressure 139/68 122/63 122/63 Pulse Oximetry 98 97 100 05/14/21 13:59 05/14/21 14:10 05/14/21 14:25 Temperature 36.3 C L Pulse Rate 110 H 94 90 Respiratory Rate 19 18 14 Blood Pressure 137/76 119/68 105/63 Pulse Oximetry 100 100 100 05/14/21 14:40 05/14/21 16:00 05/14/21 16:14 Temperature 36.4 C 35.9 C L Pulse Rate 91 86 75 Respiratory Rate 14 18 18 Blood Pressure 103/67 133/59 L 120/59 L Pulse Oximetry 95 100 97 05/14/21 22:00 05/15/21 06:00 Temperature 36.4 C L 36.7 C Pulse Rate 91 87 Respiratory Rate 18 18 Blood Pressure 113/43 L 115/64 Pulse Oximetry 97 97 Intake/Output Intake/Output: Intake & Output 05/12/21 05/13/21 05/14/21 05/15/21 23:59 23:59 23:59 23:59 Intake Total 800 800 Output Total 1150 1350 Balance -350 -550 Meds/Results Medications: Active Medications Generic Name Dose Route Start Last Admin Trade Name Freq PRN Reason Stop Dose Admin Dextrose 12.5 gm 05/14/21 13:11 Dextrose 50% 25 Gm/50 Ml Syringe IV PUSH PRN PRN Hypoglycemia Protocol Glucagon 1 mg 05/14/21 13:11 Glucagon For Inj 1 Mg Vial IM PRN PRN Hypoglycemia Protocol Glucose 15 gm 05/14/21 13:11 Glucose Oral Gel 15 Gm Of Glucse In 37.5 Gm Tube PO PRN PRN Hypoglycemia Protocol Hydromorphone HCl 0.5 mg 05/14/21 12:31 Hydromorphone Hcl Inj (*Crx) 1 Mg/Ml Syr IV PUSH Q4H PRN Pain Rated 7-10 Dextrose 1,000 mls @ 100 mls/hr 05/14/21 13:11 Dextrose 5% 1,000 Ml IVPB PRN PRN Hypoglycemia Protocol Insulin Aspart 2 - 5 units 05/14/21 17:00 05/15/21 08:13 Insulin Aspart (*Bkc) 100 Units/Ml SUB-Q Not Given TIDWM ELLEN Protocol Ondansetron HCl 4 mg 05/14/21 12:31 Ondansetron Inj 4 Mg/2 Ml Vial IV PUSH Q4H PRN Nausea Radiology Results: ITS Impressions Abdomen/Pelvis CT 05/14/21 11:24 IMPRESSION: 1. Right UVJ 6 mm stone, mild to moderate obstructive nephropathy. 2. Punctate left nephroli
[2021-05-15 09:26] LABS: Hemoglobin A1C 6.3 % (<5.7)
--- NOTE | 2021-05-15 10:10 | PM.DS ---
DS: Admitting Diagnosis Discharge Date 05/15/2021 Admitting Diagnosis Right Flank Pain with radiation to Right abdomen with N/V DS: Discharge Diagnosis Discharge Diagnosis (1) Ureterolithiasis: Code(s): N20.1 - Calculus of ureter Status: Acute Assessment and Plan: - 6 mm obstructing stone at right UVJ - Urology to place stent and perform Lithotripsy today. - Post-operative pain control to be monitored as well as renal function and VS. (Receiving Dilaudid) - Strain all urine (2) Leukocytosis, unspecified: Code(s): D72.829 - Elevated white blood cell count, unspecified Status: Acute Assessment and Plan: - WBC's improved 18K-->11.1 today, likely reactive to patient's current diagnosis of Obstructive Uropathy. - Rocephin 1 gram given IVPB in ER. - Appreciate Urology's guidance on antibiotic therapy post procedure - Urine culture pending - Does not meet Sepsis criteria (3) CAD (coronary artery disease): Code(s): I25.10 - Atherosclerotic heart disease of koi coronary artery without angina pectoris Status: Chronic Assessment and Plan: - AL with Stent placement in 1999. - ASA 81 mg po daily, last took 05/14/21 - Continue Statin therapy, DM coverage and HTN coverage (4) HTN (hypertension): Code(s): I10 - Essential (primary) hypertension Status: Chronic Assessment and Plan: - Continue Niacin post procedure - Monitor vs per protocol (5) Diabetes mellitus: Code(s): E11.9 - Type 2 diabetes mellitus without complications Status: Chronic Assessment and Plan: - Hold po hypoglycemics during hospitalization - ADA diet post procedure - Accu checks AC and HS - SSI low dose for tighter glucose control - Check A1C (6) HLD (hyperlipidemia): Code(s): E78.5 - Hyperlipidemia, unspecified Status: Chronic Assessment and Plan: - Continue Statin Therapy (7) Acute kidney injury superimposed on chronic kidney disease: Code(s): N17.9 - Acute kidney failure, unspecified; N18.9 - Chronic kidney disease, unspecified Status: Acute Assessment and Plan: - Secondary to Obstructive Nephropathy - Urology to stent and perform lithotripsy today - Post procedure monitor UOP - Trend Creatinine and BUN - Hydrate with IVF DS: Summary Hospital Course Hospital Course: This 75 year old male patient with a significant PMH of ACS including AL with subsequent stenting x2, HTN, DM, HLD and previously diagnosed Nephrolithiasis, presents to the ER for the second time in two days with continued and worsening pain secondary to obstructive Nephropathy. He was here on the and a 5 mm stone was found on the right side at the UVJ with moderate Hydronephrosis, but it was not obstructing at that time and the pt has resolution of pain, so he was discharged to home to follow up as an outpatient. He presents again today endorsing pain that was worse on the right flank this morning when he woke up and he had accompanying N/V. No hematuria, dysuria, or any visible stones passed in his urine. He was afebrile on presentation to ER and his workup there has been significant for finding a 6 mm stone in the right UVJ that is now obstructing, and is causing a worsening ELISEO with elevated Creatinine and BUN from 1.50/22 on 05/12 to 2.20/[address] Moe was consulted in ER and the decision to take him to OR today for Lithotripsy and stent placement was made. Patient currently denies any Chest Pain, Dyspnea, palpitations, and reports that his Nausea has improved as well as his pain with the administration of pain medications and anti-emetics. The patient underwent cystoscopy, lithotripsy with ureter stent. He is stable and denies any hematuria. He will need follow up and stone/stent removal with Dr. Branch. He has been give instruction to call for follow up. Discharge instructions were provided. He has also been advised to follow u
== END 2021-05-15 11:46 | disposition home or self-care (01) ==
LOC: ANHED 13:00 → ANH2MED 13:30
PROVIDERS: Nurse Practitioner Adult Health; Urology; Admitting Provider Internal Medicine Nephrology; Emergency Provider Emergency Medicine; PCP Physician Assistant; Visit Provider Internal Medicine Nephrology
PROC: (CPT 52352; principal; 2021-05-14 13:15)
DX: N13.2 Hydronephrosis with renal and ureteral calculous obstruction (principal); N17.9 Acute kidney failure, unspecified; D72.829 Elevated white blood cell count, unspecified; I12.9 Hypertensive chronic kidney disease with stage 1 through stage 4 chronic kidney disease, or unspecified chronic kidney disease; N18.9 Chronic kidney disease, unspecified; E11.22 Type 2 diabetes mellitus with diabetic chronic kidney disease; I25.2 Old myocardial infarction; I25.10 Atherosclerotic heart disease of native coronary artery without angina pectoris; E78.5 Hyperlipidemia, unspecified; Z95.5 Presence of coronary angioplasty implant and graft; F17.210 Nicotine dependence, cigarettes, uncomplicated; Z79.84 Long term (current) use of oral hypoglycemic drugs
CPT/HCPCS: 52332; 36415; 74176; 74420; 80048; 80053; 81001; 82948; 83036; 85025; 87086; 96361; 96365; 96375; 99285; A9270; C1758; C1769; C2617; G0378; J0696; J1100; J1170; J2405; J2704; J3010; J7120; Q9966

== ENCOUNTER 2021-05-19 08:46 | Outpatient (CLI) | payer MEDICARE, OTHER, SELFPAY ==
--- NOTE | 2021-05-19 10:00 | ECG_ITS ---
Measurements Intervals [place] Rate: 102 P: -1 SC: 178 QRS: 22 QRSD: 71 T: -6 QT: 310 QTc: 404 Interpretive Statements SINUS TACHYCARDIA LOW QRS VOLTAGE- DIFFUSE LEADS CONSIDER ANTEROSEPTAL INFARCT, AGE INDETERMINATE BORDERLINE T WAVE ABNORMALITY- INFERIOR LEADS ABNORMAL ECG Electronically Signed On 05-19-2021 9:07:16 CDT by Que Elder D.O.
== END 2021-05-19 08:47 | disposition home or self-care (01) ==
PROVIDERS: PCP Physician Assistant; Visit Provider Urology
DX: Z01.810 Encounter for preprocedural cardiovascular examination (principal); E78.5 Hyperlipidemia, unspecified; E11.9 Type 2 diabetes mellitus without complications; I10 Essential (primary) hypertension; Z95.5 Presence of coronary angioplasty implant and graft; R00.0 Tachycardia, unspecified
CPT/HCPCS: 93005

== ENCOUNTER 2021-05-24 01:28 | Day surgery (SDC) | payer MEDICARE, OTHER, SELFPAY ==
[2021-05-18 08:21] VITALS: BMI 25.1
[2021-05-24] VITALS (8 sets, daily range): BP systolic 94–108; BP diastolic 56–66; PULSE 66–86; RESP 12–18; TEMP 36.1; O2SAT 98–100; BMI 27.8
--- NOTE | ~2021-05-24 | XR_ITS ---
EXAMINATION: XR retrograde pyelo w/stent RT EXAM DATE: 05/24/2021 13:40 INDICATION: Right UVJ stone. Obstructive nephropathy. TECHNIQUE: Fluoroscopy used during XR retrograde pyelo w/stent RT performed by Dr. Won zuñiga MD, urologist. The radiologist Gennaro Garsia M.D. dictating this report of the image(s) availabl e was not present for the procedure. Total fluoroscopic time of 14 seconds. The DAP for this proced ure was 180 radcm2. A total of 5 images sent to PACS from the exam. Compared to 05/14/2021 FINDINGS: Images demonstrate contrast within the right renal collecting system with mild hydronephro sis. Right double-J ureteral stent in position. Correlate with procedure note. IMPRESSION: Fluoroscopy used during XR retrograde pyelo w/stent RT. Reviewed, dictated and finalized at location B.
--- NOTE | 2021-05-24 10:42 | WPDANESEPPF ---
Anes - Initial Pre Proc Eval Procedure: Operation Date: 05/24/21 13:30 Proposed Procedures p Cystoscopy, Right Ureteroscopy, Possible Retrograde Pyelogram, Stone Extraction, Possible Stent Placement, - Won Wong MD s Possible Holmium Laser Procedure - Won Wong MD Date/Time: 05/24/21 10:42 Surgeon: Won Wong MD Pre Op Diagnosis: Right ureteral stone Patient Data Age: 75 Gender: M Height: 1.83 m Weight: 84 kg Allergies Allergy/AdvReac Type Severity Reaction Status Date / Time No Known Allergies Allergy Unknown Verified 05/24/21 11:42 Home Medications Medication Instructions Recorded Confirmed Type metformin 500 mg PO BID 05/12/20 05/24/21 History nitroglycerin 0.4 mg SUBLINGUAL Q5M PRN 05/12/20 05/24/21 History simvastatin 10 mg PO HS 05/12/20 05/24/21 History niacin 1,500 mg PO HS 05/12/21 05/24/21 History aspirin 81 mg PO DAILY 05/14/21 05/18/21 History testosterone cypionate 100 mg IM WEEKLY 05/14/21 05/24/21 History cholecalciferol (vitamin D3) 25 mcg PO DAILY 05/18/21 05/24/21 History [Vitamin D3] omega-3 fatty acids-vitamin E 1 cap PO DAILY 05/18/21 05/24/21 History [Fish Oil] ECG: Date of Service: 05/19/21 Procedure(s): CA 12 lead EKG Accession Number(s): [id number] cc: ~ Measurements Intervals [place] Rate: 102 P: -1 RI: 178 QRS: 22 QRSD: 71 T: -6 QT: 310 QTc: 404 Interpretive Statements SINUS TACHYCARDIA LOW QRS VOLTAGE- DIFFUSE LEADS CONSIDER ANTEROSEPTAL INFARCT, AGE INDETERMINATE BORDERLINE T WAVE ABNORMALITY- INFERIOR LEADS ABNORMAL ECG Electronically Signed On 05-19-2021 9:07:16 CDT by Que Elder D.O. Patient hx anesthesia problems: none Family hx anesthesia problems: none PMFSH Past Medical History Medical History Diabetes mellitus HTN (hypertension) Myocardial infarct Surgical History Surgical History H/O heart artery stent History of removal of cyst Social History Social History Smoking packs per day: 0.5 Smoking cigarettes per day: 10.0 Years smoked: 50 Smoking pack-years: 25.00 Smoking status: Current every day smoker Tobacco type: cigarettes Alcohol intake: current Substance use: never Substance use type: does not use Living arrangements: with family Spiritual care concerns: No Anes - Eval Final PreProcedure Day of Procedure 05/24/21 10:42 Patient weight: normal Heart: regular rate and rhythm Lungs: clear to auscultation and normal air movement Airway: Mallampati scale class II Neurological: alert and oriented Last oral intake: >/= 8 hours ASA classification: III Emergent: no Anesthetic plan: proceed Anesthesia type and monitoring: general LMA Informed Consent: The patient's anesthetic plan and its attendant risks and benefits were discussed with the patient/family/POA. Questions were solicited and answers provided to the satisfaction of the patient/family/POA.
--- NOTE | 2021-05-24 12:18 | P.HP_ITS ---
H&P: HPI History of Present Illness Date/Time: 05/24/21 12:18 75 year old male with 6 mm right uvj calculus Chief Complaint: right uvj calculus Review of Systems Review of Systems: All systems reviewed & are unremarkable except as noted in HPI and below [facility] Past Medical History Medical History Diabetes mellitus HTN (hypertension) Myocardial infarct Surgical History Surgical History H/O heart artery stent History of removal of cyst Social History Social History Smoking packs per day: 0.5 Smoking cigarettes per day: 10.0 Years smoked: 50 Smoking pack-years: 25.00 Smoking status: Current every day smoker Tobacco type: cigarettes Alcohol intake: current Substance use: never Substance use type: does not use Living arrangements: with family Spiritual care concerns: No Meds Home Medications and Allergies Home Medications Medication Instructions Recorded Confirmed Type metformin 500 mg PO BID 05/12/20 05/24/21 History nitroglycerin 0.4 mg SUBLINGUAL Q5M PRN 05/12/20 05/24/21 History simvastatin 10 mg PO HS 05/12/20 05/24/21 History niacin 1,500 mg PO HS 05/12/21 05/24/21 History aspirin 81 mg PO DAILY 05/14/21 05/18/21 History testosterone cypionate 100 mg IM WEEKLY 05/14/21 05/24/21 History cholecalciferol (vitamin D3) 25 mcg PO DAILY 05/18/21 05/24/21 History [Vitamin D3] omega-3 fatty acids-vitamin E 1 cap PO DAILY 05/18/21 05/24/21 History [Fish Oil] Allergies Allergy/AdvReac Type Severity Reaction Status Date / Time No Known Allergies Allergy Unknown Verified 05/24/21 11:42 Exam Const: General: cooperative HENMT: Head: normal to inspection Eyes: General: appearance normal, both eyes and all related structures Resp: Effort & Inspection: normal respiratory effort Cardio: Rate: regular rate Rhythm: regular rhythm GI: Inspection: normal to inspection Assessment and Plan Assessment and plan (1) Ureterolithiasis: Code(s): N20.1 - Calculus of ureter Status: Acute Assessment and Plan: cysto, right retrograde, right ureteroscopy with stone extraction, possible laser and stent placement.
--- NOTE | 2021-05-24 12:21 | WPDHPUPDATE1 ---
History and Physical Update Update Date/Time: 05/24/21 12:21 History and Physical has been reviewed, including an updated exam of the patient. There are NO changes in the patient's condition. Risks, benefits, and alternatives have been discussed and questions answered. Patient agrees to proceed with procedure.
[2021-05-24] MEDS: LACTATED RINGERS 1,000 ML 30 ML IV CONT (12:37)
[2021-05-24 12:42] LABS: Glucose Point of Care 105 mg/dl (65-105)
[2021-05-24] MEDS: ceFAZolin 2 GM/D5W 50 ML 2 GM/50 ML BAG IVPB (13:16)
[2021-05-24] MEDS: LIDOCAINE HCL 2% GEL UROJET 10 ML PKG MUCOUS MEM (13:32)
--- NOTE | 2021-05-24 13:43 | P.OP_ITS ---
Procedure Note - Detailed Date of Procedure 05/24/21 Pre-op Diagnosis Right ureteral stone Post-op Diagnosis same Procedure Performed Cystoscopy, right retrograde pyelogram, right ureteroscopy with stone extraction, right ureteral stent exchange with 4.8 Polish contour stent Surgeon Won Wong MD Anesthesia general Description of Procedure Patient is taken the operative suite and correctly identified. Once anesthesia was obtained he was placed in dorsal lithotomy position and prepped and draped u sual sterile fashion. Twenty-two Polish scope was inserted the bladder. There are no tumors noted. The right ureteral stent was grasped and brought out the meatus. Guidewire was inserted. Rigid ureteral scope was then inserted. The stone was visualized. It was grasped with an escape basket removed in its entirety. Reinspection of the ureter reveals some persistent edema in the distal ureter. We thus did a pyelogram to confirm placement the stent. 4.8 Polish contour stent was then placed in the proximal end coiled in the renal pelvis and the distal in the bladder. Bladder was drained. 2% viscous lidocaine was inserted urethra patient taken recovery stable condition. Patient will follow up in a week's time for stent removal. Drains Yes Packing No Pathology yes Complications No immediate complications Condition stable Disposition PACU
[2021-05-24 13:58] LABS: Glucose Point of Care 85 mg/dl (65-105)
== END 2021-05-24 15:30 | disposition home or self-care (01) ==
PROVIDERS: PCP Physician Assistant; Visit Provider Urology
PROC: (CPT 52352; principal; 2021-05-24 13:30)
DX: N20.1 Calculus of ureter (principal); I10 Essential (primary) hypertension; E11.9 Type 2 diabetes mellitus without complications; I25.2 Old myocardial infarction; Z79.84 Long term (current) use of oral hypoglycemic drugs; Z79.82 Long term (current) use of aspirin; Z95.5 Presence of coronary angioplasty implant and graft; F17.210 Nicotine dependence, cigarettes, uncomplicated
CPT/HCPCS: 52332; 52352; 74420; 82365; 82948; 88300; A9270; C1758; C1769; C2617; J0690; J2405; J2704; J3010; J7120; Q9966

== ENCOUNTER 2022-06-27 11:27 | Outpatient (CLI) | payer MEDICARE, OTHER, SELFPAY ==
--- NOTE | ~2022-06-27 | XR_ITS ---
XR abdomen/kub 1V 06/27/2022 11:56 INDICATION: Flank pain TECHNIQUE: KUB COMPARISON: 05/12/2021 FINDINGS: Bowel gas pattern is normal. There is no evidence of free air, mass, organomegaly, ascites or obstruction. No abnormal calculi are seen. The bones appear intact. IMPRESSION: 1: No acute abdominal abnormality identified. Reviewed, dictated and finalized at location B.
== END 2022-06-27 11:28 | disposition home or self-care (01) ==
PROVIDERS: PCP Physician Assistant; Visit Provider Nurse Practitioner Adult Health
DX: N20.0 Calculus of kidney (principal)
CPT/HCPCS: 74018

== ENCOUNTER 2023-05-28 12:14 | Outpatient (NON) | payer MEDICARE, OTHER, SELFPAY | END 2023-05-28 12:15 | disposition home or self-care (01) | LOC: ANHLAB 12:15 | PROVIDERS: PCP Physician Assistant; Visit Provider Nurse Practitioner | DX: C44.629 Squamous cell carcinoma of skin of left upper limb, including shoulder (principal) | CPT/HCPCS: 88305; 88331 ==

== ENCOUNTER 2023-09-06 07:00 | Outpatient (NON) | payer MEDICARE, OTHER, SELFPAY | END 2023-09-06 07:01 | disposition home or self-care (01) | PROVIDERS: PCP Physician Assistant; Visit Provider Nurse Practitioner | DX: L28.1 Prurigo nodularis (principal); B07.9 Viral wart, unspecified; L73.8 Other specified follicular disorders | CPT/HCPCS: 88305 ==

== ENCOUNTER 2024-07-15 11:37 | Outpatient (CLI) | payer MEDICARE, OTHER, SELFPAY ==
--- NOTE | ~2024-07-15 | XR_ITS ---
XR abdomen/kub 1V Ordering provider: Tayler Quezada, [employer] History: . CALCULUS OF KIDNEY, ANNUAL FOLLOW-UP . Comparison: None. FINDINGS: BOWEL: Nonobstructive bowel gas pattern. ORGANOMEGALY: None. SIGNIFICANT PATHOLOGIC CALCIFICATIONS: Tiny left kidney stone. Possible tiny stone in the urinary brent dder although this is most likely in the sacrum. OTHER: No free air is seen under the diaphragm. IMPRESSION: NO ACUTE ABDOMINAL FINDINGS. Left kidney tiny stone. Reviewed, dictated and finalized at location A. ING ENGINEER
== END 2024-07-15 11:38 | disposition home or self-care (01) ==
PROVIDERS: PCP Physician Assistant; Visit Provider Nurse Practitioner Family
DX: N20.0 Calculus of kidney (principal)
CPT/HCPCS: 74018

== ENCOUNTER 2025-07-14 09:30 | Outpatient (CLI) | payer MEDICARE, OTHER, SELFPAY ==
--- NOTE | ~2025-07-14 | XR_ITS ---
Abdominal radiograph(s) INDICATION: Kidney stone COMPARISON: Abdominal x-ray 07/15/2024 CT abdomen pelvis 05/14/2021 TECHNIQUE: 2 views supine AP abdomen FINDINGS: Scattered colonic gas and stool. Small bowel loops not well seen. No evidence of organomegaly. Small calcification left kidney. 2 tiny possible stones right kidney. Splenic artery calcifications focally. No acute bony abnormality. IMPRESSION: 1. Small stone left kidney persists. 2. 2 tiny possible stones right kidney. Reviewed, dictated and finalized at location R. 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
--- OUTSIDE RECORDS SUMMARY | 2025-07-14 09:54 | XMS_ITS | Encounter Summary ---
Author Organization [facility] [place] [facility] Care Team Providers Care Interventional Radiologist Name Role Phone CAROL Desai Jr., Navneet Estrada Primary Care Provide r Jeffrey Stephens MD Unavailable [phone] Encounter Details Date Type Department Care Team (Latest Contact Info) Description 09/21/2015 Orders Only [facility] CLINCONV Provider, MD Radha [address] [place] [id number] Social History Tobacco Use Types Packs/Day Years Used Date Smoking Tobacco: Former Cigarettes Q uit: 09/03/2012 Alcohol Use Standard Drinks/Week Comments Yes 0 (1 standard drink = 0.6 oz pur e alcohol) Sex and Gender Information Value Date Recorded Sex Assigned at Not on file 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 Historical Provider Final Res ult documented in this encounter Visit Diagnoses Not on filedocumented in this encounter Care Teams Interventional Radiologist Relationship Specialty Start Date End Date Navneet Desai Jr., PA [address] [place] [address] PCP - General 03/26/19 Jeffrey Stephens MD [address] [address] Ict Quality Assurance Engineer Cardiology 04/15/19 documented as of this encounter
--- OUTSIDE RECORDS SUMMARY | 2025-07-14 09:54 | XMS_ITS | Encounter Summary ---
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 Historical Provider [facility] YOANDY QUINTANILLA Final Result documented in this encounter Visit Diagnoses Not on filedocumented in this encounter Care Teams Linen Room Custodian Relationship Specialty Start [place] [address] [id number] PCP - General 03/26/19 Jeffrey Stephens MD [address] [facility] [place] [address] Powder Core Tester Cardiology 04/15/19 documented as of this encounter
--- OUTSIDE RECORDS SUMMARY | 2025-07-14 09:54 | XMS_ITS | Clinical Summary ---
Author Organization [address] Address [address] [address] Care Team Providers Care Private Wealth Advisor Name Role Phone CAROL Desai Jr., Robert James Primary Care Provide r Jeffrey Stephens MD Unavailable [phone] Allergies Active Allergy Reactions Criticality Noted Date Comments Morphine Dizziness Low 01/16/2024 Medications cholecalciferol (VITAMIN D-3) 95559 unit capsule 1 capsule (10,000 Units total) daily Active aspirin 81 mg enteric coated tablet 1 tablet (81 mg total) Active omega 4-dkh-rdi-fish oil 1,000 mg (120 mg-180 mg) capsule 1 capsule (1,000 mg total) daily Active triamcinolone (KENALOG) 0.1 % cream 04/20/20 20 Active BD Integra Syringe 3 mL 23 gauge x 1 syringe USE ONCE WEEKLY FOR TESTOSTERONE INJECTION DIRECTED 01/03/20 21 Active nitroglycerin (NITROSTAT) 0.4 mg SL tablet Dissolve 1 tablet under the tongue as needed for chest pain 100 tablet 01/12/20 24 Active syringe with needle (BD Luer-Rachel Syringe) 3 mL 23 x 1 syringeIndications :Type 2 diabetes mellitus without complication, without long-term current use of insulin (HCC) USE UPTO 4 TIMES A DAY 100 each 3 01/17/20 25 Active testosterone cypionate (DEPO-TESTOTERONE) 200 mg/mL injectionIndicatio ns:Low testosterone in male ADMINISTER 0.5 ML IN THE MUSCLE 1 TIME WEEKLY 5 mL 3 01/17/20 25 Active simvastatin (ZOCOR) 20 mg tabletIndications: 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,Mixed hyperlipidemia Take 1 tablet (20 mg total) by mouth nightly 90 tablet 3 01/22/20 25 026 Active metFORMIN (GLUCOPHAGE) 500 mg tabletIndications: Type 2 diabetes mellitus without complication, without long-term current use of insulin (HCC) TAKE 1 TABLET(500 MG) BY MOUTH TWICE DAILY 180 tablet 1 04/03/20 25 Active Active Problems Problem Noted Date Diagnosed Date Type 2 diabetes mellitus with chronic kidney dis ease 03/28/2023 Asymptomatic PVCs 12/29/2022 Essential hypertension, benign 12/21/2021 Mixed hyperlipidemia 06/15/2021 Type 2 diabetes mellitus wit hout complication, without long-term current use of insulin 04/01/2019 Chronic kidney disease (CKD), stage III (moderat e) 04/01/2019 Overview (04/01/2019): stable Benign prostatic hyperplasia without lower urinary tract symptoms 02/20/2018 Testicular hypofunction 03/13/2017 Vitamin D deficiency 02/13/2017 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 Stress test is negative in March 2015 Resolved Problems Problem Noted Date Diagnosed Date Resolved Date Need for vaccination 03/29/2023 023 asymptomatic hypotension 06/15/2021 Dyslipidemia 04/21/2019 06/15/2021 Essential hypertension 04/01/201912/21 Overview (04/01/2019): stable off medication currently Pure hypercholesterolemia 04/01/2019 Overview (04/01/2019): stable cont current med cont to monitor Encounter for therapeutic drug monitoring 05/16/2016 09/27/2021 Smoking 03/22/2016 08/11/2024 Overview (06/04/2019): Quit more than 2 years ago Benign essential hypertension 11/16/2015 09/27/2021 Encounters Date Type Department Care Team Description 07/07/2025 9:15 AM FIELD SERVICE COORDINATOR Lab [facility] Office Building [address] [place] [id number] Stage 3b chronic kidney disease (HCC) 06/04/2025 Telephone [facility] Cardiology [address] [facility] [address] [address] Jeffrey Stephens MD lab orders 04/22/2025 8:00 AM CDT Lab [facility] Building [address] [place] [id number] 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; Mixed hyperlipidemia from Last 3 Months Immunizations Immunization Administration Dates Next Due Influenza, Quad, Adjuvantate d, Intramuscular 06/21/2022 Influenza, Quadrivalent, Hig h Dose, Preservative Free, Intrr 08/09/2021 Influenza, Quadrivalent, Spl it, Preservative Free, Intramuscular 07/10/2018 Influenza, Trivalent, High D ose, Split, Preservative Free, Intramuscular 08/11/2024,06/04/2019,06/26/2017,06/07 Influenza, Trivalent, Preser vative Free, Intramuscular 06/02/2015 Influenza, Unspecified 07/13/2023,2021,06/23/2020,06/23 Pfizer SARS-CoV-2 Monovalent Vaccination (12+ Yrs) PURPLE 06/21/2022,12/28/2020,11/30/2020 Pneumococcal Conjugate Pcv20 02/16/2025 RSV Vaccine, Pref, Recombina nt, Subunit, Adjuvanted, PF, IM (Arexvy) 07/13/2023 Td, Not Adsorbed 05/12/2020 Tdap 05/12/2020 ZOSTER LIVE 06/02/2015 ZOSTER Recombinant 10/01/2020,06/23/2020 Surgical History Surgery Date Site/Laterality Comments CORONARY STENT PLACEMENT Medical History Medical History Date Comments Hypertension Hypertension Hx Other Medical Diabetes Type I I CAD (coronary artery disease) CO (myocardial infarction) (HCC) Dyslipidemia DM (diabetes mellitus) Hyperlipidemia Chronic kidney disease Family History Medical History Relation Name Comments Heart disease Father Diabetes Mother Relation Name Status Comments Father Mother Social History Tobacco Use Types Packs/Day Years Used Date Smoking Tobacco: Former Tobacco Cessation:Counseling Given: Not Answered Alcohol Use Standard Drinks/Week Comments Yes 0 (1 standard drink = 0.6 oz pur e alcohol) AUDIT-C Answer Date Recorded Q1: How often do you have a drink containing alc ohol? Monthly or less 02/16/2025 Q2: How many drinks containi ng alcohol do you have on a typical day when you are drinking? 1 or 2 02/16/2025 Frequency of Binge Drinking Not on file 02/01 PHQ-2 Answer Date Recorded PHQ-2 Total Score (If total score is 3 or more points, staff should administer the PHQ-9) 0 02/09/2025 Sex and Gender Information Value Date Recorded Sex Assigned at Not on file Legal Sex Male 8:10 PM FIELD SERVICE COORDINATOR Gender Identity Male 12/05/2023 12:05 PM CDT Sexual Orientation Straight 12/05/2023 12 :05 PM CDT Last Filed Vital Signs Vital Sign Reading Time Taken Comments Blood Pressure 116/70 02/16/2025 1:16 PM CDT Pulse 73 02/16/2025 1:16 PM CDT Temperature 35.7 C (96.3 F) 02/16/2025 1:16 PM CDT Respiratory Rate 18 02/16/2025 1:16 PM CDT Oxygen Saturation 95% 02/16/2025 1:16 PM CDT Inhaled Oxygen Concentration - - Weight 84.4 kg (186 lb) 02/16/2025 1:16 PM CDT Height 177.8 cm (5' 10) 02/16/2025 1:16 PM CDT Body Mass Index 26.69 02/16/2025 1:16 PM CDT Plan of Treatment Health Maintenance Due Date Last Done Comments Hepatitis B Screening 1963 Foot Exam 09/08/2021 09/08/2020, 02/02, 06/04/2019 Covid-19 Vaccine (2024-2 6 season) 2025 09/19/2024, 07/13/2023, 06/21/2022, Additional history exists Influenza Vaccine (#1) 2025 , 07/13/2023, 06/21/2022, Additional history exists Hemoglobin A1C 08/18/2025 02/16/2025, 11/0 02/2024, 09/26/2023, Additional history exists Dilated Eye Exam 12/09/2025 12/10/2023, , 11/24/2021, Additional history exists Albumin Creatinine Ratio, Urine 02/16/2026 02/16/2025, 09/26/2023, 03/20/2023, Additional history exists Depression Screening 02/16/2026 02/16/2025, 02/11/2024, 10/01/2023, Additional history exists Fall Risk Assessment 02/16/2026 02/16/2025, 10/01/2023, 09/29/2022, Additional history exists Well Visit 65+ 02/16/2026 02/16/2025, 09/04, 10/01/2023, Additional history exists Lipid Panel 04/22/2026 04/22/2025, 01/01, 08/18/2024, Additional history exists eGFR 07/07/2026 07/07/2025, 01/02, 01/12/2025, Additional history exists DTaP/Tdap/Td Vaccine (3 - Td or Tdap) 05/12/2030 05/12/2020, 05/12/2020 Zoster Vaccine Completed 10/01/2020, 06/04, 06/02/2015 Abdominal Aortic Aneurysm (A AA) Screen Completed 08/18/2024 Pneumococcal vaccine 65+ Completed 02/16/2025 Procedures Procedure Name Priority Date/Time Associated Diagnosis Comments EGFR Routine 07/07/2025 9:43 AM FIELD SERVICE COORDINATOR Stage 3b chronic kidney disease (HCC) DIFFERENTIAL AUTO Routine 07/07/2025 9:4 3 AM FIELD SERVICE COORDINATOR Stage 3b chronic kidney disease (HCC) PROTEIN / CREATININE RATIO, URINE, RANDOM Routine 07/07/2025 9:43 AM FIELD SERVICE COORDINATOR Stage 3b chronic kidney disease (HCC) PTH Routine 07/07/2025 9:43 AM FIELD SERVICE COORDINATOR Stage 3b chronic kidney disease (HCC) RENAL FUNCTION PANEL Routine 07/07/2025 9:43 AM FIELD SERVICE COORDINATOR Stage 3b chronic kidney disease (HCC) VITAMIN D 25 HYDROXY Routine 07/07/2025 9:43 AM FIELD SERVICE COORDINATOR Stage 3b chronic kidney disease (HCC) CBC WITH AUTO DIFFERENTIAL Routine 07/07/2025 9:43 AM FIELD SERVICE COORDINATOR Stage 3b chronic kidney disease (HCC) LIPID PANEL Routine 04/22/2025 8:09 AM CDT 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 Mixed hyperlipidemia HEPATIC FUNCTION PANEL Routine 04/22/2025 8:09 AM CDT 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 Mixed hyperlipidemia HEMOGLOBIN A1C Routine 02/16/2025 2:15 PM CDT Medicare annual wellness visit, subsequent Type 2 diabetes mellitus with stage 3b chronic kidney disease, without long-term current use of insulin (HCC) ALBUMIN CREATININE RATIO, URINE Routine 02/16/2025 2:15 PM CDT Medicare annual wellness visit, subsequent Type 2 diabetes mellitus with stage 3b chronic kidney disease, without long-term current use of insulin (HCC) US ABDOMINAL AORTIC ANEURYSM SCREENING Schedule Routine, Read Routine (OP Routine) 08/18/2024 10:30 AM FIELD SERVICE COORDINATOR Essential hypertension, benign Screening for abdominal aortic aneurysm DIABETES EYE EXAM Routine 12/10/2023 3:02 PM CDT from Last 3 Months or Most Recently Relevant to Health Maintenance Results * (ABNORMAL) eGFR (07/07/2025 9:43 AM FIELD SERVICE COORDINATOR) eGFR 37(L) >=60 mL/min/1. 73 m2 Comment: Interpretive Data Reference Interval Normal >/= 90 mL/min/1.73m2 Mildly decreased* 60 - 89 mL/min/1.73m2 Mildly to moderately decreased 45 - 59 mL/min/1.73m2 Moderately to severely decreased 30 - 44 mL/min/1.73m2 Severely decreased 15 - 29 mL/min/1.73m2 Kidney Failure < 15 mL/min/1.73m2 *Relative to young adult level Estimated glomerular filtration rate is determined by the 2020 CKD-EPI equation recommended by the National Kidney Foundation (A Unifying Approach to GFR Estimation: Recommendations of the NKF-ASK Task Force on Reassessing the Inclusion of Race in Diagnosing Kidney Disease, JASN 2020). The CKD-EPI equation should not be used for patients with unstable renal function and has not been validated in children and those over 70. Current interpretive data was last reviewed 2021. Testing performed by: [address] [address] Blood 07/07/2025 9:43 AM FIELD SERVICE COORDINATOR 07/07/2025 11:43 AM FIELD SERVICE COORDINATOR Snehal Metz MD LAB BLOOD ORDERABLES Final Result TEDDY [id number] [facility] Department of Laboratories [place], [place] [id number] * (ABNORMAL) Differential, auto (07/07/2025 9:43 AM FIELD SERVICE COORDINATOR) Pathologist [facility] Neutrophil abs 9.25(H) 1.50 - 6.50 K/cumm Comment:Testing performed by : [address] [address] Imm gran abs 0.06 0.00 - 0.10 K/cumm TEDDY BALLARD Comment:Testing performed by : [address] [address] Lymphocyte abs 2.25 0.80 - 3.30 K/cumm TEDDY Comment:Testing performed by : [address] [address] Monocyte abs 1.07(H) 0.20 - 0.80 K/cumm [facility] Comment:Testing performed by : [address] [address] Eosinophil abs 0.41 0.00 - 0.50 K/cumm [facility] Comment:Testing performed by : [address], [place]., [address] Basophil abs 0.10 0.00 - 0.10 K/cumm [facility] Comment:Testing performed by : [address] [address] Neutrophil pct 70.4 % [facility] Comment: Interpretive Data Percent cell count reference ranges are not reported, since discordance with absolute values may lead to misinterpretation of CBC data. Current Interpretive Data was last revised on 2017. Testing performed by: [address] [address] Imm gran pct 0.5 % [facility] Comment: Interpretive Data Percent cell count reference ranges are not reported, since discordance with absolute values may lead to misinterpretation of CBC data. Current Interpretive Data was last revised on 2017. Testing performed by: [address] [address] Lymphocyte pct 17.1 % [facility] Comment: Interpretive Data Percent cell count reference ranges are not reported, since discordance with absolute values may lead to misinterpretation of CBC data. Current Interpretive Data was last revised on 2017. Testing performed by: [address] [address] Monocyte pct 8.1 % [facility] Comment: Interpretive Data Percent cell count reference ranges are not reported, since discordance with absolute values may lead to misinterpretation of CBC data. Current Interpretive Data was last revised on 2017. Testing performed by: [address] [address] Eosinophil pct 3.1 % [facility] Comment: Interpretive Data Percent cell count reference ranges are not reported, since discordance with absolute values may lead to misinterpretation of CBC data. Current Interpretive Data was last revised on 2017. Testing performed by: [address] [address] Basophil pct 0.8 % TEDDY BALLARD Comment: Interpretive Data Percent cell count reference ranges are not reported, since discordance with absolute values may lead to misinterpretation of CBC data. Current Interpretive Data was last revised on 2017. Testing performed by: [address] [address] Blood 07/07/2025 9:43 AM FIELD SERVICE COORDINATOR 07/07/2025 11:41 AM FIELD SERVICE COORDINATOR Snehal Metz MD LAB BLOOD ORDERABLES Final Result TEDDY [address] [facility] [place] [address] * (ABNORMAL) CBC with auto differential (07/07/2025 9:43 AM FIELD SERVICE COORDINATOR) WBC 13.14(H) 3.80 - 9.90 K/cumm Comment:Testing performed by : [address] [address] Hgb 16.0 13.0 - 17.5 g/dL TEDDY Comment:Testing performed by : [address] [address] Hct 48.8 38.9 - 50.3 % TEDDY Comment:Testing performed by : [address] [address] Plt 283 150 - 400 K/cumm TEDDY Comment:Testing performed by : [address] [address] MPV 10.5 9.1 - 12.3 fL TEDDY Comment:Testing performed by : [address] [address] RBC 5.46 4.30 - 5.80 M/cumm TEDDY BALLARD Comment:Testing performed by : [address] [address] MCV 89.4 81.3 - 96.4 fL TEDDY Comment:Testing performed by : [address] [address] MCH 29.3 27.1 - 33.3 pg TEDDY BALLARD Comment:Testing performed by : [address] [address] MCHC 32.8 32.3 - 35.7 g/dL TEDDY BALLARD Comment:Testing performed by : [address] [address] RDW CV 14.2 11.1 - 14.9 % [facility]DY BALLARD Comment:Testing performed by : [address] [address] RDW SD 45.9 35.7 - 48.1 fL TEDDY BALLARD Comment:Testing performed by : [address] [address] NRBC abs 0.00 0.00 - 0.01 K/cumm TEDDY BALLARD Comment:Testing performed by : [address] [address] Blood 07/07/2025 9:43 AM FIELD SERVICE COORDINATOR 07/07/2025 11:41 AM FIELD SERVICE COORDINATOR Snehal Metz MD LAB BLOOD ORDERABLES Final Result TEDDY [address] [facility] Department [place] [address] * Protein / creatinine ratio, urine, random (07/07/2025 9:43 AM FIELD SERVICE COORDINATOR) Protein, ur, quant 16.0 mg/dL Comment: Interpretive Data No reference range established. Current interpretive data was last revised 2019. Testing performed by: [address] [address] Creatinine Ur 165.5 mg/dL TEDDY BALLARD Comment: Interpretive Data No reference range established. Current interpretive data was last revised 2019. Testing performed by: [address] [address] Protein/creatinin e ratio 96.7 0.0 - 180.0 mg/g CR TEDDY BALLARD Comment:Testing performed by : [address] [address] Urine 07/07/2025 9:43 AM FIELD SERVICE COORDINATOR 07/07/2025 11:39 AM FIELD SERVICE COORDINATOR Result Xenia Metz MD LAB URINE ORDERABLES Final Result Performing Organization Address [facility] Co de Phone Number [address] [address] * (ABNORMAL) Vitamin D 25 hydroxy (07/07/2025 9:43 AM FIELD SERVICE COORDINATOR) Pathologist [facility] Vitamin D 25-OH 109.0(H) 30.0 - 80.0 ng/mL Blood 07/07/2025 9:43 AM FIELD SERVICE COORDINATOR 07/07/2025 12:24 PM FIELD SERVICE COORDINATOR Result Xenia Metz MD LAB BLOOD ORDERABLES Final Result Performing Organization Address [facility] Co de Phone Number [address] [address] * PTH (07/07/2025 9:43 AM FIELD SERVICE COORDINATOR) Pathologist [facility] PTH 37 15 - 65 pg/mL Comment:Testing performed by : [address], [address] Blood 07/07/2025 9:43 AM FIELD SERVICE COORDINATOR 07/07/2025 11:39 AM FIELD SERVICE COORDINATOR Result Xenia Metz MD LAB BLOOD ORDERABLES Final Result Performing Organization Address [facility] de Phone Number [address] [address] * (ABNORMAL) Renal function panel (07/07/2025 9:43 AM FIELD SERVICE COORDINATOR) [facility] Sodium 138 135 - 145 mmol/L Comment:Testing performed by : [address] [address] Potassium, pl 4.8 3.3 - 4.9 mmol/L TEDDY Comment:Testing performed by : [address] [address] Chloride 102 97 - 110 mmol/L TEDDY Comment:Testing performed by : [address], [place]., [address] CO2 25 22 - 32 mmol/L TEDDY Comment:Testing performed by : [address], [place]., [address] Anion gap 11 2 - 15 mmol/L TEDDY Comment:Testing performed by : [address], [place]., [address] BUN 26(H) 6 - 25 mg/dL TEDDY Comment:Testing performed by : [address], [place]., [address] Creatinine 1.80(H) 0.80 - 1.30 mg/dL TEDDY Comment:Testing performed by : [address], [place]., [address] Glucose 174 70 - 199 mg/dL TEDDY Comment: Interpretive Data Fasting glucose >/= 126 mg/dl is diagnostic for diabetes. Fasting is defined as no caloric intake for at least 8 hours. Fasting glucose between 100 mg/dl to 125 mg/dl is diagnostic of prediabetes. In a patient with classic symptoms of hyperglycemia or hyperglycemic crisis, a random glucose >/= 200 mg/dl is diagnostic for diabetes. In the absence of unequivocal hyperglycemia, results should be confirmed by repeat testing. The classification and Diagnosis of Diabetes Diabetes Care 2021; 46: S19-S40. Current interpretive data was last revised 2022. Testing performed by: [address] [address] Calcium 9.7 8.5 - 10.3 mg/dL TEDDY Comment:Testing performed by : [address] [address] Phosphorus, pl 2.2(L) 2.3 - 4.5 mg/dL TEDDY Comment:Testing performed by : [address], [place]., [address] Albumin 3.8 3.5 - 5.0 g/dL TEDDY Comment:Testing performed by : [address], [facility] [place] [address] Blood 07/07/2025 9:43 AM FIELD SERVICE COORDINATOR 07/07/2025 11:43 AM FIELD SERVICE COORDINATOR us Snehal Metz MD LAB BLOOD ORDERABLES Final Result Performing Organization Address City/[facility]/ZIP Co de Phone Number [facility] [address] [facility] [place] [address] * Hepatic function panel (04/22/2025 8:09 AM CDT) Bilirubin, total 0.6 0.1 - 1.2 mg/dL Comment:Testing performed by : [address] [address] Bilirubin, direct 0.2 0.1 - 0.3 mg/dL TEDDY Comment:Testing performed by : [address] [address] Protein, pl 6.8 6.5 - 8.5 g/dL TEDDY Comment:Testing performed by : [address] [address] Albumin 4.0 3.5 - 5.0 g/dL TEDDY Comment:Testing performed by : [address] [address] Alk phos 87 40 - 130 Units/L TEDDY Comment:Testing performed by : [address] [address] ALT 21 7 - 55 Units/L TEDDY Comment:Testing performed by : [address] [address] AST 26 10 - 50 Units/L TEDDY Comment:Testing performed by : [address] [address] Blood 04/22/2025 8:09 AM CDT 04/22/2025 9:38 AM CDT us Jeffrey Stephens MD LAB BLOOD ORDERABLES Final Result Performing Organization Address City/[facility]/ZIP Co de Phone Number [facility] [address] Department [place] [address] * Lipid panel (04/22/2025 8:09 AM CDT) [facility] Signature Cholesterol 138 30 - 199 mg/dL Comment: Interpretive Data Ages < or = 19 years Acceptable: <170 mg/dL Borderline high: 170-199 mg/dL High: >or= 200 mg/dL Ages > or = 20 years Desirable: <200 mg/dL Borderline high: 200-239 mg/dL High: >or= 240 mg/dL Literature References: 1. Expert Panel on Integrated Guidelines for Cardiovascular Health and Risk Reduction in Children and Adolescents. Pediatrics 2011;128:S213 2. NCEP Expert Panel. Circulation 2004;110:227 Current Interpretive Data was last revised on 2018. Testing performed by: [address] [address] Triglycerides 147 <=149 mg/dL TEDDY Comment: Interpretive Data Ages < or = 9 years Acceptable: <75 mg/dL Borderline high: 75-99 mg/dL High: >or= 100 mg/dL Ages 10 to 20 years Acceptable: <90 mg/dL Borderline high: 90-129 mg/dL High: >or= 130 mg/dL Ages > or = 20 years Desirable: <150 mg/dL Borderline high: 150-199 mg/dL High: 200-499 mg/dL Very high: >or= 499 mg/dL Literature References: 1. Expert Panel on Integrated Guidelines for Cardiovascular Health and Risk Reduction in Children and Adolescents. Pediatrics 2011;128:S213 2. NCEP Expert Panel. Circulation 2004;110:227 Current Interpretive Data was last revised on 2018. Testing performed by: [address] [address] HDL 41 >=40 mg/dL TEDDY Comment: Interpretive Data Ages < or = 19 years Acceptable: >45 mg/dL Borderline low: 40-45 mg/dL Low: <40 mg/dL Ages > or = 20 years Desirable: >or= 60 mg/dL Low: <40 mg/dL Literature References: 1. Expert Panel on Integrated Guidelines for Cardiovascular Health and Risk Reduction in Children and Adolescents. Pediatrics 2011;128:S213 2. NCEP Expert Panel. Circulation 2004;110:227 Current Interpretive Data was last revised on 2018. Testing performed by: [facility], [address] [place] [address]., [address] LDL, calculated 71 <=129 mg/dL TEDDY BALLARD Comment: Interpretive Data Ages < or = 19 years Acceptable: <110 mg/dL Borderline high: 110-129 mg/dL High: >or= 130 mg/dL Ages > or = 20 years Optimal: <100 mg/dL Near optimal: 100-129 mg/dL Borderline high: 130-159 mg/dL High: >160 mg/dL Calculated using the Nahum LDL-C estimating equation. This equation was implemented on 2024. Prior to this date LDL-C was estimated using the Friedewald equation. Literature References: 1. Expert Panel on Integrated Guidelines for Cardiovascular Health and Risk Reduction in Children and Adolescents. Pediatrics 2011;128:S213 2. NCEP Expert Panel. Circulation 2004;110:227 3. Nahum Sr et al. HERLINDA Cardiol. 2019January 01;5(5):540-548. doi: 10.1001/[email or web address] Current Interpretive Data was last revised on 2024. Testing performed by: [address] [address] Non-HDL Cholesterol 97 mg/dL TEDDY BALLARD Comment: Interpretive Data Ages < or = 19 years Acceptable: <120 mg/dL Borderline high: 120-144 mg/dL High: >145 mg/dL Ages > or = 20 years When triglycerides are >200 mg/dL, Non-HDL cholesterol is a secondary target of therapy with treatment goals that are 30 mg/dL greater than the LDL cholesterol target. Literature References: 1. Expert Panel on Integrated Guidelines for Cardiovascular Health and Risk Reduction in Children and Adolescents. Pediatrics 2011;128:S213 2. NCEP Expert Panel. Circulation 2004;110:227 Current Interpretive Data was last revised on 2018. Testing performed by: [address] [address] Chol/HDL ratio 3 TEDDY Comment:Testing performed by : [address] [address] Blood 04/22/2025 8:09 AM CDT 04/22/2025 9:38 AM CDT us Jeffrey Stephens MD LAB BLOOD ORDERABLES Final Result Performing Organization Address [facility] [facility] Co de Phone Number [id number] [place] [address] * Albumin Creatinine Ratio, Urine (02/16/2025 2:15 PM CDT) Albumin Ur <12.0 mg/L Comment: Interpretive Data No reference range established. Current interpretive data was last revised 2019. Testing performed by: [address] [address] Creatinine Ur 211.7 mg/dL TEDDY Comment: Interpretive Data No reference range established. Current interpretive data was last revised 2019. Testing performed by: [address] [address] Albumin Creatinine Ratio, Ur <6 1 - 29 mg/g TEDDY Comment:Testing performed by : [address] [address] Urine 02/16/2025 2:15 PM CDT 02/16/2025 4:26 PM CDT us CAROL Fonseca Jr. LAB URINE ORDERABLES Final Result Performing Organization Address [facility] de Phone Number ESTELA[address] [address] * (ABNORMAL) Hemoglobin A1c (02/16/2025 2:15 PM CDT) Hgb A1C 6.4(H) 4.0 - 5.6 % Comment:Testing performed by : [address] [address] Estimated Average Glucose 137 mg/dL TEDDY Comment: The ADA recommends reporting an estimated Average Glucose (eAG) with all Hemoglobin A1c results using the equation derived from a study of 507 normal and diabetic adults. Minority populations were underrepresented and children were not included. (Diabetes Care 31:7711-3973, 2008). The eAG is not equivalent to a fasting glucose. Testing performed by: [facility], [address] [place] [address], [place]., [address] Blood 02/16/2025 2:15 PM CDT 02/16/2025 4:34 PM CDT us CAROL Fonseca Jr. LAB BLOOD ORDERABLES Final Result Performing Organization Address City/State/[facility] Co de Phone Number TEDDY [phone] [facility] Department [place] [address] * US Abdominal Aortic Aneurysm Screening (08/18/2024 10:30 AM FIELD SERVICE COORDINATOR) Anatomical Region Laterality Modality Abdomen Ultrasound 08/22/2024 11:5 9 AM FIELD SERVICE COORDINATOR Narrative 08/22/2024 12:02 PM FIELD SERVICE COORDINATOR EXAM DESCRIPTION: US ABDOMINAL AORTIC ANEURYSM SCREENING REASON FOR STUDY: HTN, hx of smoking, CAD TECHNIQUE: Grayscale images acquired of the aorta and stored on PACS. Selected color Doppler and spectral images recorded. COMPARISON: None FINDINGS: AORTIC CALIBER MAXIMAL PROXIMAL: Obscured by bowel gas. MID: 2 cm. DISTAL: 1.7 cm. ILIAC DIAMETER RIGHT: 1.4 cm. LEFT: 1.3 cm. OTHER: No other significant finding. IMPRESSION: No abdominal aortic aneurysm. Proximal aorta obscured by bowel gas. REFERENCE: Please see below follow up recommendations for abdominal aortic aneurysm surveillance per Society for Vascular Surgery Guidelines: < 2.5 cm No follow up or future screenings necessary 2.52.9 cm Recommended ultrasound follow up every 10 years 3.0-3.9 cm Recommended ultrasound follow up every 3 years 4.0-4.9 cm Recommended ultrasound follow up every 12 months, vascular surgery consult 5.0-5.4 cm Recommended ultrasound follow up every 6 months, vascular surgery consult >= 5.5 cm Referral to vascular surgeon Based upon Society for Vascular Surgery Guidelines: J Vasc Surgery 2008 50: [email or web address]; updated Sep 2017 J Vasc Surgery 67:277 THIS IS AN ELECTRONICALLY VERIFIED FINAL REPORT 08/22/2024 12:02 PM - Electronically signed by Filipecoby Palmer M.D. KT: [email or web address] Report ID: [id number] Reading Location: [id number] Procedure Note Filipe Palmer MD - 08/22/2024 EXAM DESCRIPTION: US ABDOMINAL AORTIC ANEURYSM SCREENING REASON FOR STUDY: HTN, hx of smoking, CAD TECHNIQUE: Grayscale images acquired of the aorta and stored on PACS.Selected color Doppler and spectral images recorded. COMPARISON: None FINDINGS: AORTIC CALIBER MAXIMAL PROXIMAL: Obscured by bowel gas. MID: 2 cm. DISTAL: 1.7 cm. ILIAC DIAMETER RIGHT: 1.4 cm. LEFT: 1.3 cm. OTHER: No other significant finding. IMPRESSION: No abdominal aortic aneurysm. Proximal aorta obscured bybowel gas. REFERENCE: Please see below follow up recommendations for abdominal aortic aneurysm surveillance per Society for Vascular Surgery Guidelines: < 2.5 cm No follow up or future screenings necessary 2.52.9 cm Recommended ultrasound follow up every 10 years 3.0-3.9 cm Recommended ultrasound follow up every 3 years 4.0-4.9 cm Recommended ultrasound follow up every 12 months, vascularsurgery consult 5.0-5.4 cm Recommended ultrasound follow up every 6 months, vascularsurgery consult >= 5.5 cm Referral to vascular surgeon Based upon Society for Vascular Surgery Guidelines: J Vasc Surgery 2009Oct 50: [email or web address]; updated Sep 2017 J Vasc Surgery 67:277 THIS IS AN ELECTRONICALLY VERIFIED FINAL REPORT 08/22/2024 12:02 PM - Electronically signed by Filipe Palmer M.D. KT: [email or web address] Report ID: [id number] Reading Location: [id number] CAROL Fonseca Jr. IMG US PROCEDURES Fin al Result * DIABETES EYE EXAM (12/10/2023 3:02 PM CDT) Historical Provider HEALTH MAINTENANCE Final Result from Last 3 Months or Most Recently Relevant to Health Maintenance Insurance [facility] MEDICARE MEDICARE [facility] Care Teams Private Wealth Advisor Relationship Specialty Start [place] [address] [address] PCP - General 03/26/19 Jeffrey Stephens MD [address] [facility] [address] [address] Trim Machine Adjuster Cardiology 04/15/19
== END 2025-07-14 09:31 | disposition home or self-care (01) ==
PROVIDERS: PCP Physician Assistant; Visit Provider Nurse Practitioner Family
DX: N20.0 Calculus of kidney (principal)
CPT/HCPCS: 74018